=== PATIENT | male | born 1960 | race Caucasian/White ===

== ENCOUNTER 2018-07-02 12:55 | Inpatient (IN) | payer MEDICARE, OTHER ==
[2018-07-02 13:11] LABS: #Basophils 0.1 thou/uL (0.0-0.2); #Eosinphils 0.2 thou/uL (0.0-0.7); #Lymphocytes 3.5 thou/uL (1.20-3.40); #Neutrophils 6.3 thou/uL (1.40-6.50); %Basophils 0.6 % (0.0-1.0); %Lymphocytes 31.6 % (21.0-51.0); %Monocytes 8.7 % (0.0-10.0); %Neutrophils 57.1 % (42.0-75.0); Mean Corpuscular HGB CONC 34.4 g/dL (32.0-36.0); Mean Corpuscular Hemoglobin 30.4 pg (27.0-31.0); Mean Corpuscular Volume 88.6 fL (78.0-98.0); Mean Platelet Volume 7.6 fL (7.4-10.4); Platelet Count 194 thou/uL (130-400); RBC Distribution Width 12.5 % (11.5-14.5)
[2018-07-02 13:23] LABS: PTT 25.1 SEC (22.9-36.1); Prothrombin Time 13.7 SEC (12.0-14.7)
[2018-07-02 13:26] LABS: ALT (SGPT) 31 U/L (8-55); AST (SGOT) 23 U/L (5-34); Albumin 4.2 g/dL (3.5-5.0); Alkaline Phosphatase 76 U/L (40-150); Anion Gap 14 mmol/L (10-20); BUN (Urea Nitrogen) 17 mg/dL (8.4-25.7); Bilirubin, Total 0.8 mg/dL (0.2-1.2); CK (CPK) 173 U/L (30-200); Calc. Creatinine Clearance 0 mL/min (70-130); Calcium 9.7 mg/dL (7.8-10.44); Carbon Dioxide 24 mmol/L (22-29); Chloride 103 mmol/L (98-107); Estimated GFR-MDRD Greater than 90; Globulin 3.8 g/dL (2.4-3.5); Glucose 95 mg/dL (70-105); Potassium 4.4 mmol/L (3.5-5.1); Sodium 137 mmol/L (136-145)
--- NOTE | 2018-07-02 13:35 | CT ---
BRAIN CT WITHOUT IV CONTRAST: HISTORY: A 58-year-old male with a history of left facial droop, slurred speech approximately 1-1/2 hours ago, Code stroke alert. FINDINGS: No focal mass or midline shift. No intra- or extraaxial hemorrhage. Minimal motion artifact, partic ularly though the lower scan slice levels. IMPRESSION: No mass or bleed or other significant acute process. Findings were discussed with Dr. Theodore in the emergency room at 1:03 p.m. CODE CR POS: [facility]
--- NOTE | 2018-07-02 13:53 | CT ---
CT ANGIOGRAM OF THE HEAD AND NECK: HISTORY: Stroke alert. Left facial droop and slurred speech. Onset x 1.5 hours. COMPARISON: None. FINDINGS: No pathologic enhancement of the brain parenchymal Cortical cody-white matter differentiation is pre served. Limited evaluation for subarachnoid hemorrhage due to the presence of contrast in the arteri al system. Symmetric attenuation of the optic nerves and ocular rectus muscles. Both globes are intact. Retrob ulbar fat is preserved. Adequate aeration of the sinuses and mastoid air cells. Limited evaluation of the oral cavity due to dental amalgam artifact. Midline fatty raphae of the to ngue is preserved. Epiglottis has a normal caliber. Preepiglottic fat is preserved. Symmetric attenuation of the submandibular gland and parathyroid gland. Symmetric attenuation of the sternocleidomastoid muscles. Unremarkable thyroid gland. No evidence of lymphadenopathy by size criteria. There is an anterior fusion place with transvertebr al screw at C4-C5. Disk prosthesis at that level is noted. There is moderate degenerative disk dise ase at C5-C6. There are varying degrees of central canal stenosis and neural foraminal narrowing on the basis of degenerative change. Limited evaluation due to technique. There does appear to be sign ificant bilateral foraminal narrowing and significant central canal stenosis at the C5-C6 level. CT ANGIOGRAM: There is appropriate enhancement and luminal diameter of the aortic arch. RIGHT CAROTID: There is appropriate enhancement and luminal diameter of the common carotid artery, carotid bifurcati on, and internal carotid artery. No evidence of stenosis by NASCET criteria. LEFT CAROTID: The left carotid artery origin has appropriate enhancement and luminal diameter. The left common car otid artery, carotid bifurcation, and internal carotid artery have appropriate enhancement and lumina l diameter. No significant stenosis based on NASCET criteria. Cervical vertebral arteries are patent throughout their course in the neck and essentially codominant . Symmetric appearance of both visualized subclavian arteries. CT ANGIOGRAM OF THE HEAD: There is symmetric enhancement and luminal diameter of the distal cervical and intracranial internal carotid arteries. ANTERIOR CIRCULATION: Symmetric enhancement and luminal diameter of the A1 and M1 segments. Proximal A2 segments and proxi mal MCA branches are also patent and symmetric. POSTERIOR CIRCULATION: Right PICA artery origin is unremarkable. The left PICA artery origin is difficult to appreciate. B oth vertebral arteries supply a normal-caliber basilar artery. The left P1 segment has appropriate e nhancement and luminal diameter. The right PARK SUPERINTENDENT has a origin. IMPRESSION: 1. No significant stenosis or vascular occlusion at the level of the [place]. 2. No significant atherosclerotic disease of the great vessels of the neck, based upon NASCET criter ia. 3. Results of the study were discussed with Dr. Theodore 07/02/2018 at 1:28 p.m. CODE CR POS: [facility]
--- NOTE | 2018-07-02 14:02 | RAD ---
CHEST 1 VIEW: HISTORY: A 58-year-old male with a history of left-sided facial droop which began this morning, dysphasia, and slurred speech, expressive aphasia. FINDINGS: Heart size is normal. The lungs are clear. NO pneumonia, edema, or pleural effusion. IMPRESSION: No acute intrathoracic disease. Stable from prior study. POS: [facility]
[2018-07-02 16:12] VITALS: BMI 40.6
[2018-07-02] MEDS ORDERED: Ondansetron ODT 4 MG TAB SL PRN (16:19)
[2018-07-02] MEDS ORDERED: Iopamidol 370 76% 100 ML VIAL ONE (17:03)
[2018-07-02] MEDS: Acetaminophen 325 MG TAB PO PRN ×2 (19:36→23:34)
[2018-07-02] MEDS: Ondansetron PF 4 MG/2 ML Vial IVP PRN (19:36)
--- NOTE | 2018-07-02 23:06 | CON ---
DATE OF CONSULTATION: 07/02/2018 CHIEF COMPLAINT: Possible acute stroke. HISTORY OF PRESENT ILLNESS: ER physician called me this afternoon with a request for a stroke evaluation and possible IV tPA. We immediately saw this patient through telemedicine consultation. History was obtained from the patient and his . The patient woke up this morning at around 9:30 a.m., he went to the restroom to brush his teeth. His face felt numb and he was swishing his mouth out and gargling and he could not do it. He felt he has swallowing difficulties and was not able to swallow anything and he has not eaten anything on the morning. He felt that his mouth and everything around and the numbness in the face has travelled. He also had some pain behind his ear, but he reports numbness in the right arm and right leg as well. was driving him to the ER and she noticed his speech became slurred and both sides of his face became weak. The question was whether this patient did indeed have a stroke due to this unusual medical history, therefore, Neuro consult was obtained stat and evaluation was performed. The patient has no history of weakness. PREVIOUS MEDICAL HISTORY: Hypertension. PAST SURGICAL HISTORY: In 2016, he had cervical diskectomy and fusion. FAMILY HISTORY: Father had a CVA, at 59. Mother at 70, she also had CVA at 65. SOCIAL HISTORY: He used to work as a chemical lab supervisor and is a nonsmoker and does not drink alcohol, and he has been on disability due to back problems. MEDICATIONS: At home include; 1. Amlodipine and benazepril combination at 5/20 mg once daily. 2. Sertraline 100 mg per day. 3. Diazepam 5 mg as needed. 4. Hydrochlorothiazide 25 mg per day. 5. Aspirin 81 mg as needed. REVIEW OF SYSTEMS: PULMONARY: Negative for any shortness of breath. CARDIAC: Negative for palpitations or chest pain. GI: Negative for any nausea, vomiting, nausea, or GI bleed. HEMATOLOGICAL: Negative for any bleeding or diatheses. DERMATOLOGICAL: Negative. NEUROLOGICAL: Positive for numbness of the face, facial weakness, right-sided numbness, and difficulty with swallowing. LABORATORY DATA: Laboratory workup was reviewed and his lab reports showed normal white count 11.0, hemoglobin 17, hematocrit 49.6, and platelets 194. PT 13.7, INR 1.0, PTT 25.1. Chemistry; sodium 137, potassium 4.4, chloride 103, bicarb 24, BUN 17, creatinine 0.83. Liver functions are within normal limits. His CT of the head was negative for any acute intracranial process and CT angiogram did not show any critical stenosis in the larger intracranial or extracranial vessels. However, there is some disk prostheses and degenerative changes on the C-spine and CT in the posterior circulation, left PICA artery origin was difficult to appreciate and both vertebral arteries were normal. The left P1 segment has appropriate enhancement. Right GUEST SERVICE REPRESENTATIVE has origin. PHYSICAL EXAMINATION: VITAL SIGNS: Stable in the ER, and his blood pressure at the time of my evaluation was 150/104, pulse 69, and respiratory rate 20. GENERAL APPEARANCE: Slightly obese gentleman who is well built and well nourished. CHEST: Clear vesicular breathing. CARDIOVASCULAR: S1 and S2 heard. No murmurs. ABDOMEN: Soft and nontender. No organomegaly noted. NEUROLOGICAL: Higher intellectual functions. Oriented to time, place, person, and dysarthria was present due to facial weakness. Cranial nerve examination II through XII abnormal with the pupils reacting at 2 mm equally and normal extraocular movements. There was facial asymmetry with the right facial droop and right facial weakness. He was moving his tongue around, but he says this was due to him feeling everything is numb. Decreased sensation of the right side of the face. Normal hearing bilaterally. Normal elevation of palate, but deviation of the mouth to the right side. Motor examination, no pronator drift was noted. Bulk, normal. Tone, normal. Strength, 5/5 in upper and lower extremities. Muscle groups tested in iliopsoas, hamstrings, quadriceps, ankle dorsiflexion, plantar flexion, deltoid, biceps, triceps, wrist extension and flexion, finger extension and flexion bilaterally, and deep tendon reflexes were 1+ throughout. Sensory examination normal to touch and proprioception on the left side, but decreased touch in the right face, arm, and leg distribution. Cerebellar; normal [id number]-[id number]-tday and [id number]. IMPRESSION: The patient is a 58-year-old man with a history of hypertension and there is also family history of stroke, even though the CT angiogram is read as normal. There are some areas or segments that are not visible, especially the left Posterior inferior cerebellar artery. The patient's clinical symptoms are mostly consistent with facial weakness, facial numbness, right-sided numbness, and also difficulty swallowing, and examination showed right lower motor neuron facial weakness plus facial numbness on the right side, right leg and arm numbness along with tongue deviation to the right. All are suggestive of possible posterior circulation event could likely in the medullopontine junction. At this time, due to patient being within in the time frame for IV tPA and it is difficult to predict the future progression of his event over the next 24 hours. He is a candidate for IV tPA. With the help of ER physician and discussion of all side defects and pros and cons of IV tPA, the patient and his were agreeable to IV tPA treatment. Plan is to proceed with IV tPA and admit the patient in the hospital for monitoring and completion of his stroke workup. Neurology will follow up as-needed. Please call them tomorrow if you need additional help for this patient. Job ID: [id number]
[2018-07-03] MEDS: Ondansetron PF 4 MG/2 ML Vial IVP PRN (01:29)
[2018-07-03] MEDS ORDERED: Acetaminophen/Codeine 30-300mg Tablet PO SCH (01:30)
[2018-07-03] MEDS ORDERED: Labetalol HCl 100 MG/20 ML VIAL SLOW IVP PRN (05:56)
[2018-07-03] MEDS ORDERED: Ondansetron PF 4 MG/2 ML Vial IVP SCH (07:00)
[2018-07-03] MEDS ORDERED: Ondansetron PF 4 MG/2 ML Vial IVP PRN ×2 (08:11→11:34)
[2018-07-03] MEDS: Communication Order-Pharmacy FS SCH (08:35)
[2018-07-03] MEDS: Hydrochlorothiazide 25 MG TAB PO SCH (08:53)
[2018-07-03] MEDS: Diazepam 5 MG TAB PO PRN (08:53)
--- NOTE | 2018-07-03 09:30 | CON ---
DATE OF CONSULTATION: 07/03/2018 CONSULTING PHYSICIAN: Leighannist . REASON FOR CONSULTATION: Stroke. HISTORY OF PRESENT ILLNESS: The patient is a 58-year-old male, who developed right-sided facial numbness and a right-sided facial droop while brushing his teeth yesterday. He was brought to the ER. He had CT cerebral angiogram, which did not show any abnormalities, but the patient was given tPA. He has had resolution of the numbness, but continues to have the right-sided facial droop. He had no other neurologic symptoms. He currently denies any problems swallowing or with his speech. PAST MEDICAL HISTORY: 1. Hypertension. 2. [place]. 3. Depression. PAST SURGICAL HISTORY: Cervical diskectomy and fusion. FAMILY MEDICAL HISTORY: Remarkable for stroke in his father, who at age 58. Mother also had a stroke. SOCIAL HISTORY: He is retired from working at a [employer] plant. Does not smoke. Does not consume alcohol. He is on disability due to his back. MEDICATIONS: Prior to admission, 1. Amlodipine with benazepril 5/25 once daily. 2. Sertraline 100 mg daily. 3. Diazepam 5 mg daily as needed. 4. Hydrochlorothiazide 25 mg daily. 5. Aspirin 81 mg daily, but not every day. REVIEW OF SYSTEMS: Twelve-point review of systems otherwise except for that in the history of present illness. PHYSICAL EXAMINATION: VITAL SIGNS: Temperature 98.0, pulse 67, blood pressure 147/84, O2 sat 99%, and respiratory rate 21. GENERAL: He is awake and alert, and in no distress. NEUROLOGIC: Pupils are reactive. He has a right-sided facial droop. Tongue projects midline. He has 5/5 motor strength throughout his arms and legs. No sensory deficits in arms and legs. No other focal deficits found. HEENT: Otherwise unremarkable. NECK: No JVD. LUNGS: Clear without wheezing. CARDIAC: S1 and S2, regular. ABDOMEN: Soft and nontender. EXTREMITIES: No clubbing, cyanosis, or edema. SKIN: No lesions. LABORATORY DATA: White blood cell count of 11, hematocrit 49.6, and platelet count 194. Sodium 137, potassium 4.4, chloride 103, CO2 of 24, BUN 17, creatinine 0.8, and glucose 95. IMAGING DATA: A chest x-ray demonstrated some scoliosis changes. Otherwise, lung murry were clear. ASSESSMENT: 1. Stroke with right-sided facial muscle weakness. 2. Risk factor for stroke appears to be hypertension. RECOMMENDATIONS: At the end of his 24-hour tPA window, he can be transferred out to the Stroke Floor. He is not requiring anything in the way of IV blood pressure management, so I do not think this is going to be a complicated situation. There are no acute pulmonary/critical care issues and we will be available as needed for recommendations. Job ID: [id number]
[2018-07-03] MEDS: Amlodipine 5 mg/Benazepril 20 mg CAP PO SCH (10:19)
--- NOTE | 2018-07-03 10:39 | CT ---
CT BRAIN WITHOUT CONTRAST: Date: 07/03/18 HISTORY: Cerebrovascular accident. Stroke. COMPARISON: Brain CT prior day. FINDINGS: Old right basal ganglia lacunar infarction. No acute large volume hemorrhage or infarction. No midlin e shift or mass effect. Insular ribbons are intact. IMPRESSION: No acute intracranial abnormality. No change. POS: [facility]
[2018-07-03] MEDS ORDERED: predniSONE 20 MG TAB PO SCH (10:45)
--- NOTE | 2018-07-03 10:52 | PDOC.PN ---
- Subjective Encounter Start Date: 07/03/18 Encounter Start Time: 09:10 -: old records requested/rev Patient seen and examined. No new complaints. No overnight events - Objective MAR Reviewed: Yes Vital Signs & Weight: Vital Signs (12 hours) Temp Pulse Ox 07/03/18 09:00 98 F 07/03/18 07:56 100 07/03/18 07:00 98 F 07/03/18 04:00 98.1 F 07/03/18 00:00 97.8 F Weight Weight 289 lb 14.526 oz Most Recent Monitor Data Heart Rate from ECG 66 NIBP 136/81 NIBP BP-Mean 99 Respiration from ECG 18 SpO2 89 I&O: 07/02/18 07/03/18 07/04/18 06:59 06:59 06:59 Intake Total 780 300 Output Total 1200 420 Balance -420 -120 Result Diagrams: 07/02/18 13:00 07/02/18 13:00 Additional Labs: Accuchecks 07/02/18 13:01 POC Glucose 88 Radiology Reviewed by me: Yes (CT brain noted) EKG Reviewed by me: Yes (nsr) Phys Exam - Physical Examination Constitutional: NAD HEENT: PERRLA, moist MMs, sclera anicteric Neck: no JVD, supple Respiratory: no wheezing, no rales, no rhonchi Cardiovascular: RRR, no significant murmur, no rub Gastrointestinal: soft, non-tender, no distention, positive bowel sounds Musculoskeletal: no edema, pulses present Neurological: non-focal, normal sensation, moves all 4 limbs 7th LMN palsy Lymphatic: no nodes Psychiatric: normal affect, A&O x 3 Skin: no rash, normal turgor Dx/Plan (1) Acute CVA (cerebrovascular accident) Code(s): I63.9 - CEREBRAL INFARCTION, UNSPECIFIED Status: Suspected (2) Received intravenous tissue plasminogen activator (tPA) in emergency department Code(s): Z92.82 - S/P ADMN TPA IN DIFF FAC W/N LAST 24 HR BEF ADM TO CRNT FAC Status: Acute (3) Anxiety and depression Code(s): F41.9 - ANXIETY DISORDER, UNSPECIFIED; F32.9 - MAJOR DEPRESSIVE DISORDER, SINGLE EPISODE, UNSPECIFIED Status: Chronic (4) Dyslipidemia Code(s): E78.5 - HYPERLIPIDEMIA, UNSPECIFIED Status: Chronic (5) Hypertension Code(s): I10 - ESSENTIAL (PRIMARY) HYPERTENSION Status: Chronic (6) Swann's palsy Code(s): G51.0 - SWANN'S PALSY Status: Acute - Plan cont current plan of care, plan discussed w/ family, PT/OT * medication reviewed as below * symptomatic treatment * discussed with family and all test result discussed * will transfer to stroke floor later on today * will get MRI, echo as a part of stroke work up. Review of Systems - Review of Systems Eyes: negative: Pain, Vision Change, Conjunctivae Inflammation, Eyelid Inflammation, Redness, Other ENT: negative: Ear Pain, Ear Discharge, Nose Pain, Nose Discharge, Nose Congestion, Mouth Pain, Mouth Swelling, Throat Pain, Throat Swelling, Other Respiratory: negative: Cough, Dry, Shortness of Breath, Hemoptysis, SOB with Excertion, Pleuritic Pain, Sputum, Wheezing Cardiovascular: negative: chest pain, palpitations, orthopnea, paroxysmal nocturnal dyspnea, edema, light headedness, other Gastrointestinal: negative: Nausea, Vomiting, Abdominal Pain, Diarrhea, Constipation, Melena, Hematochezia, Other Genitourinary: negative: Dysuria, Frequency, Incontinence, Hematuria, Retention , Other Musculoskeletal: negative: Neck Pain, Shoulder Pain, Arm Pain, Back Pain, Hand Pain, Leg Pain, Foot Pain, Other - Medications/Allergies Allergies/Adverse Reactions: Allergies Allergy/AdvReac Type Severity Reaction Status Date / Time No Known Allergies Allergy Unverified 02/15/16 15:14 Medications: Current Medications Amlodipine/Benazepril HCl (Lotrel 11/15) 1 cap PO QAM [facility] Last Admin: 07/03/18 10:19 Dose: 1 cap Artificial Tears (Tears Renewed 15ml Bottle) 2 drop R EYE QID PRN PRN Reason: Dry Eyes Aspirin (Ecotrin) 325 mg PO DAILY [facility] Atorvastatin Calcium (Lipitor) 40 mg PO HS [facility] Diazepam (Valium) 5 mg PO BID PRN PRN Reason: Anxiety/Agitation Last Admin: 07/03/18 08:53 Dose: 5 mg Hydrochlorothiazide (Hydrochlorothiazide) 25 mg PO DAILY [facility] Last Admin: 07/03/18 08:53 Dose: 25 mg Nicardipine HCl 25 mg/ Sodium (Chloride) 260 mls @ 0 mls/hr IVPB INF PRN; Protocol PRN Reason: SBP > 180 or DBP > 105 Labetalol HCl (Normodyne) 10 mg SLOW IVP Q2H PRN PRN Reason: SBP > 180 or DBP > 105 Miscellaneous Information (Communication Order-Pharmacy) 1 each FS NOW [facility] Stop: 07/04/18 05:57 Last Admin: 07/03/18 08:35 Dose: Not Given Ondansetron HCl (Zofran) 4 mg IVP Q6H PRN PRN Reason: Nausea/Vomiting Prednisone (Prednisone) 40 mg PO 1045 [facility] Stop: 07/03/18 12:00 Last Admin: 07/03/18 10:53 Dose: 40 mg Prednisone (Prednisone) 20 mg PO 0900 [facility] Stop: 07/04/18 12:00 Prednisone (Prednisone) 15 mg PO 0900 [facility] Stop: 07/04/18 12:00 Prednisone (Prednisone) 30 mg PO 0900 [facility] Stop: 07/05/18 12:00 Prednisone (Prednisone) 25 mg PO 0900 [facility] Stop: 07/06/18 12:00 Sertraline HCl (Zoloft) 100 mg PO QAM [facility] Last Admin: 07/03/18 08:53 Dose: 100 mg Sodium Chloride (Flush - Normal Saline) 10 ml IVF Q12HR [facility] Last Admin: 07/03/18 08:53 Dose: 10 ml Sodium Chloride (Flush - Normal Saline) 10 ml IVF PRN PRN PRN Reason: Saline Flush
[2018-07-03] MEDS ORDERED: Cepastat Lozenges 1 LOZ PO PRN (11:34)
[2018-07-03] MEDS ORDERED: Loratadine 10 MG TAB PO PRN (11:34)
[2018-07-03] MEDS ORDERED: Loperamide HCl 2 MG CAP PO PRN (11:34)
[2018-07-03] MEDS ORDERED: Diabetic Tussin 200 MG/10 ML UDCUP PO PRN (11:34)
[2018-07-03] MEDS ORDERED: Zolpidem Tartrate 5 MG TAB PO PRN (11:34)
[2018-07-03] MEDS ORDERED: hydrALAZINE 20 MG/ML VIAL SLOW IVP PRN (11:34)
[2018-07-03] MEDS ORDERED: Sodium Chloride 0.65% Nasal 44 ML BOT EA NARE PRN (11:34)
[2018-07-03] MEDS ORDERED: Bisacodyl 5 MG TAB PO PRN (11:34)
[2018-07-03] MEDS ORDERED: Eucerin (Mineral Oil/Petrolatum,White) 30 gm Jar TOP PRN (11:34)
[2018-07-03] MEDS ORDERED: Senokot S 8.6-50 MG TAB PO PRN (11:34)
[2018-07-03] MEDS ORDERED: Artificial Tears 18 DROP/0.9 ML EA EYE PRN (11:34)
[2018-07-03] MEDS: Acetaminophen/Codeine 30-300mg Tablet PO PRN ×2 (12:51→20:52)
--- NOTE | 2018-07-03 14:19 | MRI ---
MRI BRAIN WITHOUT CONTRAST: Date: 07/03/18 HISTORY: Evaluate CVA. Right facial weakness. COMPARISON: CT brain same date. FINDINGS: On the diffusion-weighted image sequence, there are no abnormal areas of diffusion restriction to sug gest an acute infarction. This is confirmed on the ADC map. Mild microvascular ischemic change. No midline shift. No mass effect. The [place] flow-voids are maintained. On the susceptibility imaging sequence, there are no abnormal areas of hemorrhage. Corpus callosum is normal. Marrow signal of the clivus is normal. IMPRESSION: No acute intracranial abnormality. No hemorrhage or infarct. POS: [facility]
--- NOTE | 2018-07-03 16:11 | PRG ---
DATE OF SERVICE: 07/03/2018 SUBJECTIVE: The patient states that he still feels that the right side of his face is weak. He notices that he does not close his right eye as well as he close of the left eye. He does not noticing any numbness or weakness of his arms or legs. He feels that he is better than yesterday. He had tPA given in the ER for stroke-like symptoms. OBJECTIVE: VITAL SIGNS: Blood pressure 133/82, pulse 73 regular, respiratory rate 18, O2 saturation 91%. HEENT: Negative. Throat is clear. Tongue does not deviate. Cranial nerves 2 through 12 tested normally except for right peripheral 7th palsy. He does not wrinkle the right side of the forehead as well as the left. He does not bury the eyelashes on the right side and there is weakness of the right side of the mouth. Motor 5/5 strength in the arms and legs. DTRs 1+. Toes downgoing. Sensation is normal. Coordination is normal. LABORATORY DATA: Test results showed a white count of 11.0, platelets 194,000, hemoglobin 17, hematocrit 49.6. Other tests showed that in the ER, he had a CT of the head which was negative. He had a followup CT of the head today, which was also negative. This was done because he had tPA yesterday. There was a CTA of the head and neck, it was essentially negative. However, the left posterior inferior cerebellar artery was difficult to appreciate. IMPRESSION: His examination is consistent mostly with a peripheral 7th palsy on the right, consistent with a Vincent's palsy. PLAN: We will go ahead and get the MRI of the brain to absolutely rule out a cerebral infarction. Discussed with the patient. Also we will give tapering dose of prednisone 40 mg, alternating with 40 mg a day, and then tapering by 5 mg every other day. Also, we will give Artificial Tears in the right eye, use right eye protection. Discussed in detail with the patient and his and answered questions. Discussed with patient's nurse. Job ID: [id number]
[2018-07-03] MEDS: Atorvastatin Calcium 40 MG TAB PO SCH (20:52)
[2018-07-04] MEDS: Ondansetron ODT 4 MG TAB PO PRN ×2 (00:09→10:32)
[2018-07-04] MEDS: Diazepam 5 MG TAB PO PRN ×2 (00:09→20:44)
[2018-07-04] MEDS: Communication Order-Pharmacy FS SCH (02:16)
[2018-07-04 06:51] LABS: #Eosinphils 0.2 thou/uL (0.0-0.7); #Lymphocytes 3.6 thou/uL (1.20-3.40); #Neutrophils 6.7 thou/uL (1.40-6.50); %Basophils 0.4 % (0.0-1.0); %Eosinophils 1.9 % (0.0-10.0); %Lymphocytes 30.9 % (21.0-51.0); %Monocytes 8.9 % (0.0-10.0); %Neutrophils 57.9 % (42.0-75.0); Hemoglobin 15.5 g/dL (14.0-18.0); Mean Corpuscular HGB CONC 33.8 g/dL (32.0-36.0); Mean Corpuscular Hemoglobin 30.3 pg (27.0-31.0); Mean Corpuscular Volume 89.8 fL (78.0-98.0); Mean Platelet Volume 7.4 fL (7.4-10.4); Platelet Count 212 thou/uL (130-400); RBC Distribution Width 12.5 % (11.5-14.5); Red Blood Cell (RBC) Count 5.11 mill/uL (4.70-6.10); White Blood Cell (WBC) Count 11.6 thou/uL (4.8-10.8)
[2018-07-04 07:12] LABS: Anion Gap 12 mmol/L (10-20); BUN (Urea Nitrogen) 14 mg/dL (8.4-25.7); Calc. Creatinine Clearance 178 mL/min (70-130); Calcium 9.4 mg/dL (7.8-10.44); Carbon Dioxide 25 mmol/L (22-29); Cardiac Risk 3.7 (Less than 4.5); Chloride 101 mmol/L (98-107); Cholesterol 178 mg/dl (< 200 Desired); Estimated GFR-MDRD Greater than 90; Glucose 90 mg/dL (70-105); HDL Cholesterol 48 mg/dL (>60 Neg Risk); LDL Cholesterol, Calculated 103 mg/dL; Potassium 3.4 mmol/L (3.5-5.1); Sodium 135 mmol/L (136-145); Triglycerides 134 mg/dL (Less than 150)
[2018-07-04] MEDS: Aspirin 325 mg Enteric Coated Tablet PO SCH (08:32)
[2018-07-04] MEDS: Amlodipine 5 mg/Benazepril 20 mg CAP PO SCH (08:33)
[2018-07-04] MEDS: Hydrochlorothiazide 25 MG TAB PO SCH (08:33)
[2018-07-04] MEDS: Artificial Tear Sol 15 ML BOT R EYE PRN ×2 (08:35→20:46)
[2018-07-04] MEDS ORDERED: predniSONE 20 MG TAB PO SCH (09:00)
[2018-07-04] MEDS ORDERED: predniSONE 5 MG TAB PO SCH (09:00)
--- NOTE | 2018-07-04 10:57 | PDOC.PN ---
- Subjective Encounter Start Date: 07/04/18 Encounter Start Time: 07:20 Patient seen and examined. No new complaints. No overnight events pt feels dizziness, headache is improving - Objective Resuscitation Status - Order Detail: 07/03/18 11:35 Resuscitation Status Routine Resuscitation Status: FULL: Full Resuscitation MAR Reviewed: Yes Vital Signs & Weight: Vital Signs (12 hours) Temp Pulse Pulse Pulse Resp BP BP 07/04/18 09:50 73 75 128/62 146/85 H 07/04/18 08:22 98.5 F 73 20 07/04/18 08:21 07/04/18 03:34 97.7 F 61 16 07/04/18 00:00 98.2 F 59 L 16 07/03/18 23:00 98 F 67 18 BP BP Pulse Ox 07/04/18 09:50 07/04/18 08:22 143/74 H 92 L 07/04/18 08:21 92 L 07/04/18 03:34 139/71 92 L 07/04/18 00:00 133/72 95 07/03/18 23:00 128/72 94 L Weight Weight 275 lb Most Recent Monitor Data Heart Rate from ECG 73 NIBP 142/75 NIBP BP-Mean 97 Respiration from ECG 22 SpO2 91 I&O: 07/03/18 07/04/18 07/05/18 06:59 06:59 06:59 Intake Total 780 1660 Output Total 1200 2645 Balance -420 -985 Result Diagrams: 07/04/18 05:32 07/04/18 05:32 Radiology Reviewed by me: Yes (MRI normal, echo is normal) EKG Reviewed by me: Yes (nsr) Phys Exam - Physical Examination Constitutional: NAD HEENT: PERRLA, moist MMs, sclera anicteric Neck: no JVD, supple Respiratory: no wheezing, no rales, no rhonchi Cardiovascular: RRR, no significant murmur, no rub Gastrointestinal: soft, non-tender, no distention, positive bowel sounds Musculoskeletal: no edema, pulses present Neurological: non-focal, normal sensation, moves all 4 limbs 7th nerve LMN palsy Lymphatic: no nodes Psychiatric: normal affect, A&O x 3 Skin: no rash, normal turgor Dx/Plan (1) Acute CVA (cerebrovascular accident) Code(s): I63.9 - CEREBRAL INFARCTION, UNSPECIFIED Status: Suspected (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 Status: Acute (3) Received intravenous tissue plasminogen activator (tPA) in emergency department Code(s): Z92.82 - S/P ADMN TPA IN DIFF FAC W/N LAST 24 HR BEF ADM TO CRNT FAC Status: Acute (4) Anxiety and depression Code(s): F41.9 - ANXIETY DISORDER, UNSPECIFIED; F32.9 - MAJOR DEPRESSIVE DISORDER, SINGLE EPISODE, UNSPECIFIED Status: Chronic (5) Dyslipidemia Code(s): E78.5 - HYPERLIPIDEMIA, UNSPECIFIED Status: Chronic (6) Hypertension Code(s): I10 - ESSENTIAL (PRIMARY) HYPERTENSION Status: Chronic (7) Hypokalemia Code(s): E87.6 - HYPOKALEMIA Status: Acute (8) [place] on CPAP Code(s): G47.33 - OBSTRUCTIVE SLEEP APNEA (ADULT) (PEDIATRIC); Z99.89 - DEPENDENCE ON OTHER ENABLING MACHINES AND DEVICES Status: Chronic (9) Obesity (BMI 30-39.9) Code(s): E66.9 - OBESITY, UNSPECIFIED Status: Chronic - Plan cont current plan of care, PT/OT * replace potassium * continue PT/OT * continue prednisone * expecting discharge tomorrow * medication reviewed as below * symptomatic treatment. Review of Systems - Review of Systems ENT: negative: Ear Pain, Ear Discharge, Nose Pain, Nose Discharge, Nose Congestion, Mouth Pain, Mouth Swelling, Throat Pain, Throat Swelling, Other Respiratory: negative: Cough, Dry, Shortness of Breath, Hemoptysis, SOB with Excertion, Pleuritic Pain, Sputum, Wheezing Cardiovascular: negative: chest pain, palpitations, orthopnea, paroxysmal nocturnal dyspnea, edema, light headedness, other Gastrointestinal: negative: Nausea, Vomiting, Abdominal Pain, Diarrhea, Constipation, Melena, Hematochezia, Other Genitourinary: negative: Dysuria, Frequency, Incontinence, Hematuria, Retention , Other Musculoskeletal: negative: Neck Pain, Shoulder Pain, Arm Pain, Back Pain, Hand Pain, Leg Pain, Foot Pain, Other Skin: negative: Rash, Lesions, Mark, Bruising, Other - Medications/Allergies Allergies/Adverse Reactions: Allergies Allergy/AdvReac Type Severity Reaction Status Date / Time No Known Allergies Allergy Unverified 02/15/16 15:14 Medications: Current Medications Acetaminophen (Tylenol) 500 mg PO Q6H PRN PRN Reason: Mild Pain (1-3) Acetaminophen/Codeine Phosphate (Tylenol #3) 1 tab PO Q4H PRN PRN Reason: Moderate Pain (4-6) Acetaminophen/Codeine Phosphate (Tylenol #3) 2 tab PO Q4H PRN PRN Reason: Moderate to Severe Pain (6-10) Last Admin: 07/03/18 20:52 Dose: 2 tab Amlodipine/Benazepril HCl (Lotrel /) [address] [facility] Last Admin: 07/04/18 08:33 Dose: 1 cap Artificial Tears (Tears Renewed 15ml Bottle) 2 drop R EYE QID PRN PRN Reason: Dry Eyes Last Admin: 07/04/18 08:35 Dose: 2 drop Artificial Tears (Tears Naturale) 2 drop EA EYE PRN PRN PRN Reason: Dry Eyes Aspirin (Ecotrin) [address] [facility] Last Admin: 07/04/18 08:32 Dose: 325 mg Atorvastatin Calcium (Lipitor) 40 mg PO [facility] Last Admin: 07/03/18 20:52 Dose: 40 mg Bisacodyl (Dulcolax) 10 mg PO DAILYPRN PRN PRN Reason: Constipation Diazepam (Valium) 5 mg PO BID PRN PRN Reason: Anxiety/Agitation Last Admin: 07/04/18 00:09 Dose: 5 mg Guaifenesin (Robitussin Sf) 200 mg PO Q4H PRN PRN Reason: Cough Hydralazine HCl (Apresoline) 10 mg SLOW IVP Q4H PRN PRN Reason: SBP > 180 and HR < 70 Hydrochlorothiazide (Hydrochlorothiazide) [address] [facility] Last Admin: 07/04/18 08:33 Dose: 25 mg Labetalol HCl (Normodyne) 10 mg SLOW IVP Q2H PRN PRN Reason: SBP > 180 or DBP > 105 Loperamide HCl (Imodium) 2 mg PO PRN PRN PRN Reason: Diarrhea/Loose Stools Loratadine (Claritin) 10 mg PO DAILYPRN PRN PRN Reason: Sinus Symptoms Mineral Oil/White Petrolatum (Eucerin Cream) 0 gm TOP BIDPRN PRN PRN Reason: Dry Skin Ondansetron HCl (Zofran Odt) 4 mg PO Q6H PRN PRN Reason: Nausea/Vomiting Last Admin: 07/04/18 10:32 Dose: 4 mg Ondansetron HCl (Zofran) 4 mg IVP Q6H PRN PRN Reason: Nausea/Vomiting Last Admin: 07/03/18 12:51 Dose: 4 mg Prednisone (Prednisone) [address] [facility] Stop: 07/04/18 12:00 Last Admin: 07/04/18 10:32 Dose: 20 mg Prednisone (Prednisone) [address] [facility] Stop: 07/04/18 12:00 Last Admin: 07/04/18 08:32 Dose: 15 mg Prednisone (Prednisone) [address] [facility] Stop: 07/05/18 12:00 Prednisone (Prednisone) [address] [facility] Stop: 07/06/18 12:00 Prednisone (Prednisone) [address] [facility] Stop: 07/07/18 12:00 Prednisone (Prednisone) [address] [facility] Stop: 07/08/18 12:00 Prednisone (Prednisone) [address] [facility] Stop: 07/09/18 12:00 Prednisone (Prednisone) [address] [facility] Stop: 07/10/18 12:00 Senna/Docusate Sodium (Senokot S) 2 tab PO BID PRN PRN Reason: Constipation Sertraline HCl (Zoloft) [address] [facility] Last Admin: 07/04/18 08:32 Dose: 100 mg Sodium Chloride (Flush - Normal Saline) [address] [facility] Last Admin: 07/04/18 08:33 Dose: 10 ml Sodium Chloride (Flush - Normal Saline) 10 ml IVF PRN PRN PRN Reason: Saline Flush Sodium Chloride ([place] Nasal [place] 0.65%) 0 ml EA NARE QIDPRN PRN PRN Reason: Nasal Congestion Throat Lozenges (Cepastat Lozenges) 1 anila PO Q2H PRN PRN Reason: Sore Throat Zolpidem Tartrate (Ambien) 5 mg PO HSPRN PRN PRN Reason: Insomnia
[2018-07-04] MEDS: Meclizine HCl 12.5 MG TAB PO PRN (13:37)
--- NOTE | 2018-07-04 18:43 | PRG ---
DATE OF SERVICE: 07/04/2018 NEUROLOGY FOLLOWUP NOTE. SUBJECTIVE: This is followup for right-sided facial weakness. The patient still complains of some numbness around his lips and he is dizzy when he gets up. He is also a little bit nauseated. He has not had a bowel movement in two days, but really has not eaten very much. OBJECTIVE: VITAL SIGNS: On exam, blood pressure 127/60, respiratory rate 16, pulse 72 and regular, and temperature 98.6. HEENT: Normal. Cranial nerves II through XII show a peripheral 7th palsy on the right. He has diminished wrinkling of the right side of the forehead. Diminished eye closure on the right. Diminished wrinkling of the right side of the nose and diminished grimace of the right side of the mouth. The left side of the face is normal as far as strength. Pupils are 2 mm and reactive. Discs are sharp. Extraocular movements are normal. His tongue protrudes in the midline. Motor, 5/5 strength on the arms and legs. DTRs 2+. Toes downgoing. Sensation is intact to light touch on both sides of the face and on the arms and legs bilaterally. LABORATORY DATA: Test results show that he had an MRI of the brain and this was normal. There was no acute stroke. There was some mild chronic microvascular change. The labs showed a white count of 11.6, hemoglobin 15, potassium was slightly low at 3.4, and BUN 14. IMPRESSION: Vincent's palsy. It appears about the same as yesterday. There were no other cranial nerve findings other than the right peripheral 7th palsy. His exam is totally consistent with Vincent's palsy. His MRI of the brain is normal. Note that some people may get vertigo when they have Vincent's palsy. He also does have a history of vertigo in the past. PLAN: Discussed in detail the results of the MRI of the brain and CT and the Vincent's palsy with the patient and his . He is on a tapering regimen of the prednisone and Artificial Tears for the right eye. He is advised to use eye protection. He is advised to move around carefully due to his vertigo. We will give him meclizine p.r.n. for the vertigo. I do not have any further neurological recommendations at this point. Advise second opinion if the patient and family desires. Job ID: [id number] [facility]
[2018-07-04] MEDS: Atorvastatin Calcium 40 MG TAB PO SCH (20:43)
[2018-07-05] MEDS: Ondansetron ODT 4 MG TAB PO PRN ×2 (08:20→13:20)
[2018-07-05] MEDS: Aspirin 325 mg Enteric Coated Tablet PO SCH (08:27)
[2018-07-05] MEDS: Amlodipine 5 mg/Benazepril 20 mg CAP PO SCH (08:28)
[2018-07-05] MEDS: Hydrochlorothiazide 25 MG TAB PO SCH (08:28)
[2018-07-05] MEDS: Artificial Tear Sol 15 ML BOT R EYE PRN (08:36)
[2018-07-05] MEDS ORDERED: predniSONE 20 MG TAB PO SCH (09:00)
[2018-07-05] MEDS: Acetaminophen/Codeine 30-300mg Tablet PO PRN (09:09)
[2018-07-05] MEDS: Meclizine HCl 12.5 MG TAB PO PRN (09:12)
[2018-07-05] MEDS: Diazepam 5 MG TAB PO PRN ×2 (10:38→21:25)
--- NOTE | 2018-07-05 13:05 | PDOC.PN ---
- Subjective Encounter Start Date: 07/05/18 Encounter Start Time: 07:30 he has vertigo, headache, nausea, prefers to evaluate for inpt rehab, Patient seen and examined. No new complaints. No overnight events - Objective Resuscitation Status - Order Detail: 07/03/18 11:35 Resuscitation Status Routine Resuscitation Status: FULL: Full Resuscitation MAR Reviewed: Yes Vital Signs & Weight: Vital Signs (12 hours) Temp Pulse Pulse Resp BP BP BP 07/05/18 12:00 97.6 F 65 12 119/66 07/05/18 10:05 81 137/72 07/05/18 08:21 07/05/18 07:58 97.4 F L 61 18 143/84 H 07/05/18 03:53 07/05/18 03:22 97.9 F 60 18 120/68 Pulse Ox 07/05/18 12:00 94 L 07/05/18 10:05 07/05/18 08:21 99 07/05/18 07:58 99 07/05/18 03:53 92 L 07/05/18 03:22 92 L Weight Weight 281 lb 3.2 oz Most Recent Monitor Data Heart Rate from ECG 73 NIBP 142/75 NIBP BP-Mean 97 Respiration from ECG 22 SpO2 91 I&O: 07/04/18 07/05/18 07/06/18 06:59 06:59 06:59 Intake Total 1660 840 Output Total 2645 Balance -985 840 Result Diagrams: 07/04/18 05:32 07/04/18 05:32 Additional Labs: Accuchecks 07/05/18 10:42 POC Glucose 182 H EKG Reviewed by me: Yes (nsr) Phys Exam - Physical Examination Constitutional: NAD HEENT: PERRLA, moist MMs, sclera anicteric Neck: no JVD, supple Respiratory: no wheezing, no rales, no rhonchi Cardiovascular: RRR, no significant murmur, no rub Gastrointestinal: soft, non-tender, no distention, positive bowel sounds Musculoskeletal: no edema, pulses present Neurological: non-focal, normal sensation, moves all 4 limbs swann's palsy noted Lymphatic: no nodes Psychiatric: normal affect, A&O x 3 Skin: no rash, normal turgor Dx/Plan (1) Acute CVA (cerebrovascular accident) Code(s): I63.9 - CEREBRAL INFARCTION, UNSPECIFIED Status: Suspected (2) Received intravenous tissue plasminogen activator (tPA) in emergency department Code(s): Z92.82 - S/P ADMN TPA IN DIFF FAC W/N LAST 24 HR BEF ADM TO CRNT FAC Status: Acute (3) Anxiety and depression Code(s): F41.9 - ANXIETY DISORDER, UNSPECIFIED; F32.9 - MAJOR DEPRESSIVE DISORDER, SINGLE EPISODE, UNSPECIFIED Status: Chronic (4) Dyslipidemia Code(s): E78.5 - HYPERLIPIDEMIA, UNSPECIFIED Status: Chronic (5) Hypertension Code(s): I10 - ESSENTIAL (PRIMARY) HYPERTENSION Status: Chronic (6) Swann's palsy Code(s): G51.0 - SWANN'S PALSY Status: Acute (7) Hypokalemia Code(s): E87.6 - HYPOKALEMIA Status: Acute (8) [place] on CPAP Code(s): G47.33 - OBSTRUCTIVE SLEEP APNEA (ADULT) (PEDIATRIC); Z99.89 - DEPENDENCE ON OTHER ENABLING MACHINES AND DEVICES Status: Chronic (9) Obesity (BMI 30-39.9) Code(s): E66.9 - OBESITY, UNSPECIFIED Status: Chronic - Plan cont current plan of care, plan discussed w/ family, PT/OT, adoption social worker * change prednisone 40 mg po daily * continue PT/OT and evaluate for inpt rehab * medication reviewed as below * symptomatic treatment * discussed with and family bedside * change antivert 25 mg po tid. Review of Systems - Review of Systems Constitutional: negative: fever, chills, sweats, weakness, malaise, other Eyes: negative: Pain, Vision Change, Conjunctivae Inflammation, Eyelid Inflammation, Redness, Other ENT: negative: Ear Pain, Ear Discharge, Nose Pain, Nose Discharge, Nose Congestion, Mouth Pain, Mouth Swelling, Throat Pain, Throat Swelling, Other Respiratory: negative: Cough, Dry, Shortness of Breath, Hemoptysis, SOB with Excertion, Pleuritic Pain, Sputum, Wheezing Cardiovascular: light headedness. negative: chest pain, palpitations, orthopnea , paroxysmal nocturnal dyspnea, edema, other Gastrointestinal: Nausea. negative: Vomiting, Abdominal Pain, Diarrhea, Constipation, Melena, Hematochezia, Other Genitourinary: negative: Dysuria, Frequency, Incontinence, Hematuria, Retention , Other Musculoskeletal: negative: Neck Pain, Shoulder Pain, Arm Pain, Back Pain, Hand Pain, Leg Pain, Foot Pain, Other Skin: negative: Rash, Lesions, Mark, Bruising, Other - Medications/Allergies Allergies/Adverse Reactions: Allergies Allergy/AdvReac Type Severity Reaction Status Date / Time No Known Allergies Allergy Unverified 02/15/16 15:14 Medications: Current Medications Acetaminophen (Tylenol) 500 mg PO Q6H PRN PRN Reason: Mild Pain (1-3) Acetaminophen/Codeine Phosphate (Tylenol #3) 1 tab PO Q4H PRN PRN Reason: Moderate Pain (4-6) Last Admin: 07/05/18 09:09 Dose: 1 tab Acetaminophen/Codeine Phosphate (Tylenol #3) 2 tab PO Q4H PRN PRN Reason: Moderate to Severe Pain (6-10) Last Admin: 07/03/18 20:52 Dose: 2 tab Amlodipine/Benazepril HCl (Lotrel 5/20) 1 cap PO QAM [facility] Last Admin: 07/05/18 08:28 Dose: 1 cap Artificial Tears (Tears Renewed 15ml Bottle) 2 drop R EYE QID PRN PRN Reason: Dry Eyes Last Admin: 07/05/18 08:36 Dose: 2 drop Artificial Tears (Tears Naturale) 2 drop EA EYE PRN PRN PRN Reason: Dry Eyes Aspirin (Ecotrin) 325 mg PO DAILY [facility] Last Admin: 07/05/18 08:27 Dose: 325 mg Atorvastatin Calcium (Lipitor) 40 mg PO HS [facility] Last Admin: 07/04/18 20:43 Dose: 40 mg Bisacodyl (Dulcolax) 10 mg PO DAILYPRN PRN PRN Reason: Constipation Diazepam (Valium) 5 mg PO BID PRN PRN Reason: Anxiety/Agitation Last Admin: 07/05/18 10:38 Dose: 5 mg Guaifenesin (Robitussin Sf) 200 mg PO Q4H PRN PRN Reason: Cough Hydralazine HCl (Apresoline) 10 mg SLOW IVP Q4H PRN PRN Reason: SBP > 180 and HR < 70 Hydrochlorothiazide (Hydrochlorothiazide) 25 mg PO DAILY [facility] Last Admin: 07/05/18 08:28 Dose: 25 mg Labetalol HCl (Normodyne) 10 mg SLOW IVP Q2H PRN PRN Reason: SBP > 180 or DBP > 105 Loperamide HCl (Imodium) 2 mg PO PRN PRN PRN Reason: Diarrhea/Loose Stools Loratadine (Claritin) 10 mg PO DAILYPRN PRN PRN Reason: Sinus Symptoms Meclizine HCl (Antivert) 25 mg PO Q8HR [facility] Mineral Oil/White Petrolatum (Eucerin Cream) 0 gm TOP BIDPRN PRN PRN Reason: Dry Skin Ondansetron HCl (Zofran Odt) 4 mg PO Q6H PRN PRN Reason: Nausea/Vomiting Last Admin: 07/05/18 08:20 Dose: 4 mg Ondansetron HCl (Zofran) 4 mg IVP Q6H PRN PRN Reason: Nausea/Vomiting Last Admin: 07/03/18 12:51 Dose: 4 mg Prednisone (Prednisone) 40 mg PO [facility] Senna/Docusate Sodium (Senokot S) 2 tab PO BID PRN PRN Reason: Constipation Sertraline HCl (Zoloft) 100 mg PO [facility] Last Admin: 07/05/18 08:28 Dose: 100 mg Sodium Chloride (Flush - Normal Saline) 10 ml IVF Q12HR [facility] Last Admin: 07/05/18 08:28 Dose: 10 ml Sodium Chloride (Flush - Normal Saline) 10 ml IVF PRN PRN PRN Reason: Saline Flush Sodium Chloride ([place] Nasal [place] 0.65%) 0 ml EA NARE QIDPRN PRN PRN Reason: Nasal Congestion Throat Lozenges (Cepastat Lozenges) 1 anila PO Q2H PRN PRN Reason: Sore Throat Zolpidem Tartrate (Ambien) 5 mg PO HSPRN PRN PRN Reason: Insomnia
[2018-07-05] MEDS: Meclizine HCl 25 MG TAB PO SCH ×2 (13:14→21:20)
[2018-07-05] MEDS: Atorvastatin Calcium 40 MG TAB PO SCH (21:20)
[2018-07-06] MEDS: Meclizine HCl 25 MG TAB PO SCH ×3 (06:23→20:16)
[2018-07-06] MEDS: Amlodipine 5 mg/Benazepril 20 mg CAP PO SCH (08:27)
[2018-07-06] MEDS: predniSONE 20 MG TAB PO SCH (08:27)
[2018-07-06] MEDS: Hydrochlorothiazide 25 MG TAB PO SCH (08:27)
[2018-07-06] MEDS: Aspirin 325 mg Enteric Coated Tablet PO SCH (08:27)
[2018-07-06] MEDS: Artificial Tear Sol 15 ML BOT R EYE PRN (08:28)
[2018-07-06] MEDS: Ondansetron ODT 4 MG TAB PO PRN ×2 (08:38→15:10)
[2018-07-06] MEDS: Diazepam 5 MG TAB PO PRN (08:39)
[2018-07-06] MEDS ORDERED: predniSONE 5 MG TAB PO SCH (09:00)
[2018-07-06] MEDS: Acetaminophen/Codeine 30-300mg Tablet PO PRN ×2 (10:38→15:10)
--- NOTE | 2018-07-06 13:30 | PDOC.PN ---
- Subjective Encounter Start Date: 07/06/18 Encounter Start Time: 07:45 Patient seen and examined. No new complaints. No overnight events - Objective Resuscitation Status - Order Detail: 07/03/18 11:35 Resuscitation Status Routine Resuscitation Status: FULL: Full Resuscitation MAR Reviewed: Yes Vital Signs & Weight: Vital Signs (12 hours) Temp Pulse Pulse Resp BP BP Pulse Ox 07/06/18 12:00 98.3 F 69 20 132/70 96 07/06/18 10:09 57 L 139/70 07/06/18 08:32 97 07/06/18 07:57 97.6 F 64 14 146/79 H 97 07/06/18 04:00 97.9 F 55 L 18 142/73 H 95 Weight Weight 281 lb 3.2 oz Most Recent Monitor Data Heart Rate from ECG 73 NIBP 142/75 NIBP BP-Mean 97 Respiration from ECG 22 SpO2 91 I&O: 07/05/18 07/06/18 07/07/18 06:59 06:59 06:59 Intake Total 840 120 Balance 840 120 Result Diagrams: 07/04/18 05:32 07/04/18 05:32 EKG Reviewed by me: Yes (nsr) Phys Exam - Physical Examination Constitutional: NAD HEENT: PERRLA, moist MMs, sclera anicteric Neck: no JVD, supple Respiratory: no wheezing, no rales, no rhonchi Cardiovascular: RRR, no significant murmur, no rub Gastrointestinal: soft, non-tender, no distention, positive bowel sounds Musculoskeletal: no edema, pulses present Neurological: non-focal, normal sensation bells palsy Lymphatic: no nodes Psychiatric: normal affect, A&O x 3 Skin: no rash, normal turgor Dx/Plan (1) Acute CVA (cerebrovascular accident) Code(s): I63.9 - CEREBRAL INFARCTION, UNSPECIFIED Status: Suspected (2) Received intravenous tissue plasminogen activator (tPA) in emergency department Code(s): Z92.82 - S/P ADMN TPA IN DIFF FAC W/N LAST 24 HR BEF ADM TO CRNT FAC Status: Acute (3) Anxiety and depression Code(s): F41.9 - ANXIETY DISORDER, UNSPECIFIED; F32.9 - MAJOR DEPRESSIVE DISORDER, SINGLE EPISODE, UNSPECIFIED Status: Chronic (4) Dyslipidemia Code(s): E78.5 - HYPERLIPIDEMIA, UNSPECIFIED Status: Chronic (5) Hypertension Code(s): I10 - ESSENTIAL (PRIMARY) HYPERTENSION Status: Chronic (6) Swann's palsy Code(s): G51.0 - SWANN'S PALSY Status: Acute (7) Hypokalemia Code(s): E87.6 - HYPOKALEMIA Status: Acute (8) [place] on CPAP Code(s): G47.33 - OBSTRUCTIVE SLEEP APNEA (ADULT) (PEDIATRIC); Z99.89 - DEPENDENCE ON OTHER ENABLING MACHINES AND DEVICES Status: Chronic (9) Obesity (BMI 30-39.9) Code(s): E66.9 - OBESITY, UNSPECIFIED Status: Chronic - Plan cont current plan of care, plan discussed w/ family, PT/OT, group social worker * pt still has vertigo, he will need placement * medication reviewed as below * symptomatic treatment * continue PT. Review of Systems - Review of Systems ENT: negative: Ear Pain, Ear Discharge, Nose Pain, Nose Discharge, Nose Congestion, Mouth Pain, Mouth Swelling, Throat Pain, Throat Swelling, Other Respiratory: negative: Cough, Dry, Shortness of Breath, Hemoptysis, SOB with Excertion, Pleuritic Pain, Sputum, Wheezing Cardiovascular: negative: chest pain, palpitations, orthopnea, paroxysmal nocturnal dyspnea, edema, light headedness, other Gastrointestinal: negative: Nausea, Vomiting, Abdominal Pain, Diarrhea, Constipation, Melena, Hematochezia, Other Genitourinary: negative: Dysuria, Frequency, Incontinence, Hematuria, Retention , Other Musculoskeletal: negative: Neck Pain, Shoulder Pain, Arm Pain, Back Pain, Hand Pain, Leg Pain, Foot Pain, Other Skin: negative: Rash, Lesions, Mark, Bruising, Other - Medications/Allergies Allergies/Adverse Reactions: Allergies Allergy/AdvReac Type Severity Reaction Status Date / Time No Known Allergies Allergy Unverified 02/15/16 15:14 Medications: Current Medications Acetaminophen (Tylenol) 500 mg PO Q6H PRN PRN Reason: Mild Pain (1-3) Acetaminophen/Codeine Phosphate (Tylenol #3) 1 tab PO Q4H PRN PRN Reason: Moderate Pain (4-6) Last Admin: 07/05/18 09:09 Dose: 1 tab Acetaminophen/Codeine Phosphate (Tylenol #3) 2 tab PO Q4H PRN PRN Reason: Moderate to Severe Pain (6-10) Last Admin: 07/06/18 10:38 Dose: 2 tab Amlodipine/Benazepril HCl (Lotrel 11/15) 1 cap PO QAM [facility] 234 BEDS AT [facility] Last Admin: 07/06/18 08:27 Dose: 1 cap Artificial Tears (Tears Renewed 15ml Bottle) 2 drop R EYE QID PRN PRN Reason: Dry Eyes Last Admin: 07/06/18 08:28 Dose: 2 drop Artificial Tears (Tears Naturale) 2 drop EA EYE PRN PRN PRN Reason: Dry Eyes Aspirin (Ecotrin) 325 mg PO DAILY [facility] 234 BEDS AT [facility] Last Admin: 07/06/18 08:27 Dose: 325 mg Atorvastatin Calcium (Lipitor) 40 mg PO HS [facility]S INCLUDE 234 BEDS AT [facility] Last Admin: 07/05/18 21:20 Dose: 40 mg Bisacodyl (Dulcolax) 10 mg PO DAILYPRN PRN PRN Reason: Constipation Diazepam (Valium) 5 mg PO BID PRN PRN Reason: Anxiety/Agitation Last Admin: 07/06/18 08:39 Dose: 5 mg Guaifenesin (Robitussin Sf) 200 mg PO Q4H PRN PRN Reason: Cough Hydralazine HCl (Apresoline) 10 mg SLOW IVP Q4H PRN PRN Reason: SBP > 180 and HR < 70 Hydrochlorothiazide (Hydrochlorothiazide) 25 mg PO DAILY [facility] 234 BEDS [facility] Last Admin: 07/06/18 08:27 Dose: 25 mg Labetalol HCl (Normodyne) 10 mg SLOW IVP Q2H PRN PRN Reason: SBP > 180 or DBP > 105 Loperamide HCl (Imodium) 2 mg PO PRN PRN PRN Reason: Diarrhea/Loose Stools Loratadine (Claritin) 10 mg PO DAILYPRN PRN PRN Reason: Sinus Symptoms Meclizine HCl (Antivert) 25 mg PO Q8HR [facility]S [facility]CLUDE 234 BEDS AT [facility] Last Admin: 07/06/18 06:23 Dose: 25 mg Mineral Oil/White Petrolatum (Eucerin Cream) 0 gm TOP BIDPRN PRN PRN Reason: Dry Skin Ondansetron HCl (Zofran Odt) 4 mg PO Q6H PRN PRN Reason: Nausea/Vomiting Last Admin: 07/06/18 08:38 Dose: 4 mg Ondansetron HCl (Zofran) 4 mg IVP Q6H PRN PRN Reason: Nausea/Vomiting Last Admin: 07/03/18 12:51 Dose: 4 mg Prednisone (Prednisone) 40 mg PO [facility] Last Admin: 07/06/18 08:27 Dose: 40 mg Senna/Docusate Sodium (Senokot S) 2 tab PO BID PRN PRN Reason: Constipation Last Admin: 07/06/18 12:45 Dose: 2 tab Sertraline HCl (Zoloft) 100 mg PO [facility] Last Admin: 07/06/18 08:27 Dose: 100 mg Sodium Chloride (Flush - Normal Saline) 10 ml IVF Q12HR COUNTS INCLUDE 234 BEDS AT [facility] Last Admin: 07/06/18 08:27 Dose: 10 ml Sodium Chloride (Flush - Normal Saline) 10 ml IVF PRN PRN PRN Reason: Saline Flush Sodium Chloride ([place] Nasal [place] 0.65%) 0 ml EA NARE QIDPRN PRN PRN Reason: Nasal Congestion Throat Lozenges (Cepastat Lozenges) 1 anila PO Q2H PRN PRN Reason: Sore Throat Zolpidem Tartrate (Ambien) 5 mg PO HSPRN PRN PRN Reason: Insomnia
[2018-07-06] MEDS: Acetaminophen 500 MG TAB PO PRN (20:15)
[2018-07-06] MEDS: Atorvastatin Calcium 40 MG TAB PO SCH (20:15)
[2018-07-07] MEDS: Ondansetron ODT 4 MG TAB PO PRN ×2 (01:48→15:04)
[2018-07-07] MEDS: Acetaminophen 500 MG TAB PO PRN (01:51)
[2018-07-07] MEDS: Acetaminophen/Codeine 30-300mg Tablet PO PRN ×3 (06:00→15:04)
[2018-07-07] MEDS: Meclizine HCl 25 MG TAB PO SCH ×2 (06:00→14:04)
[2018-07-07] MEDS ORDERED: predniSONE 20 MG TAB PO SCH (09:00)
--- NOTE | 2018-07-07 09:22 | CT ---
HEAD CT WITHOUT CONTRAST: Date: 07-07-18 Comparison: 07-03-18 History: Frontal headache and vertigo. Technique: Axial CT imaging obtained at 5 mm intervals from vertex through the skull base without con trast. FINDINGS: Imaged paranasal sinuses and mastoid air cells well aerated. No displaced calvarial fracture, intracr anial hemorrhage, midline shift, or mass effect. IMPRESSION: No acute findings. POS: YARELIS
[2018-07-07] MEDS: Aspirin 325 mg Enteric Coated Tablet PO SCH (09:42)
[2018-07-07] MEDS: Hydrochlorothiazide 25 MG TAB PO SCH (09:42)
[2018-07-07] MEDS: Amlodipine 5 mg/Benazepril 20 mg CAP PO SCH (09:42)
[2018-07-07] MEDS: predniSONE 20 MG TAB PO SCH (09:42)
[2018-07-07] MEDS: Diazepam 5 MG TAB PO PRN (09:46)
--- NOTE | 2018-07-07 10:36 | PDOC.PN ---
- Subjective Encounter Start Date: 07/07/18 Encounter Start Time: 07:30 Patient seen and examined. No new complaints. No overnight events - Objective Resuscitation Status - Order Detail: 07/03/18 11:35 Resuscitation Status Routine Resuscitation Status: FULL: Full Resuscitation MAR Reviewed: Yes Vital Signs & Weight: Vital Signs (12 hours) Temp Pulse Resp BP BP Pulse Ox 07/07/18 08:00 97.5 F L 56 L 16 139/83 95 07/07/18 04:00 97.6 F 57 L 16 131/77 93 L 07/07/18 00:00 97.4 F L 54 L 16 125/65 95 Weight Weight 280 lb 11.2 oz Most Recent Monitor Data Heart Rate from ECG 73 NIBP 142/75 NIBP BP-Mean 97 Respiration from ECG 22 SpO2 91 I&O: 07/06/18 07/07/18 07/08/18 06:59 06:59 06:59 Intake Total 120 500 Balance 120 500 Result Diagrams: 07/04/18 05:32 07/04/18 05:32 Radiology Reviewed by me: Yes (ct brain negative) EKG Reviewed by me: Yes (nsr) Phys Exam - Physical Examination Constitutional: NAD HEENT: PERRLA, moist MMs, sclera anicteric Neck: no JVD, supple Respiratory: no wheezing, no rales, no rhonchi Cardiovascular: RRR, no significant murmur, no rub Gastrointestinal: soft, non-tender, no distention, positive bowel sounds Musculoskeletal: no edema, pulses present Neurological: non-focal, normal sensation, moves all 4 limbs Lymphatic: no nodes Psychiatric: normal affect, A&O x 3 Skin: no rash, normal turgor Dx/Plan (1) Acute CVA (cerebrovascular accident) Code(s): I63.9 - CEREBRAL INFARCTION, UNSPECIFIED Status: Suspected (2) Received intravenous tissue plasminogen activator (tPA) in emergency department Code(s): Z92.82 - S/P ADMN TPA IN DIFF FAC W/N LAST 24 HR BEF ADM TO CRNT FAC Status: Acute (3) Anxiety and depression Code(s): F41.9 - ANXIETY DISORDER, UNSPECIFIED; F32.9 - MAJOR DEPRESSIVE DISORDER, SINGLE EPISODE, UNSPECIFIED Status: Chronic (4) Dyslipidemia Code(s): E78.5 - HYPERLIPIDEMIA, UNSPECIFIED Status: Chronic (5) Hypertension Code(s): I10 - ESSENTIAL (PRIMARY) HYPERTENSION Status: Chronic (6) Swann's palsy Code(s): G51.0 - SWANN'S PALSY Status: Acute (7) Hypokalemia Code(s): E87.6 - HYPOKALEMIA Status: Acute (8) [place] on CPAP Code(s): G47.33 - OBSTRUCTIVE SLEEP APNEA (ADULT) (PEDIATRIC); Z99.89 - DEPENDENCE ON OTHER ENABLING MACHINES AND DEVICES Status: Chronic (9) Obesity (BMI 30-39.9) Code(s): E66.9 - OBESITY, UNSPECIFIED Status: Chronic - Plan cont current plan of care, plan discussed w/ family, PT/OT, social studies teacher * continue prednisone for 5 more days then taper * medication reviewed as below * symptomatic treatment * outpt ENT follow up. Review of Systems - Review of Systems ENT: negative: Ear Pain, Ear Discharge, Nose Pain, Nose Discharge, Nose Congestion, Mouth Pain, Mouth Swelling, Throat Pain, Throat Swelling, Other Respiratory: negative: Cough, Dry, Shortness of Breath, Hemoptysis, SOB with Excertion, Pleuritic Pain, Sputum, Wheezing Cardiovascular: negative: chest pain, palpitations, orthopnea, paroxysmal nocturnal dyspnea, edema, light headedness, other Gastrointestinal: negative: Nausea, Vomiting, Abdominal Pain, Diarrhea, Constipation, Melena, Hematochezia, Other Genitourinary: negative: Dysuria, Frequency, Incontinence, Hematuria, Retention , Other Musculoskeletal: negative: Neck Pain, Shoulder Pain, Arm Pain, Back Pain, Hand Pain, Leg Pain, Foot Pain, Other Skin: negative: Rash, Lesions, Mark, Bruising, Other - Medications/Allergies Allergies/Adverse Reactions: Allergies Allergy/AdvReac Type Severity Reaction Status Date / Time No Known Allergies Allergy Unverified 02/15/16 15:14 Medications: Current Medications Acetaminophen (Tylenol) 500 mg PO Q6H PRN PRN Reason: Mild Pain (1-3) Last Admin: 07/07/18 01:51 Dose: 500 mg Acetaminophen/Codeine Phosphate (Tylenol #3) 1 tab PO Q4H PRN PRN Reason: Moderate Pain (4-6) Last Admin: 07/07/18 06:00 Dose: 1 tab Acetaminophen/Codeine Phosphate (Tylenol #3) 2 tab PO Q4H PRN PRN Reason: Moderate to Severe Pain (6-10) Last Admin: 07/07/18 09:46 Dose: 2 tab Amlodipine/Benazepril HCl (Lotrel 11/15) 1 cap PO QAM [facility] Last Admin: 07/07/18 09:42 Dose: 1 cap Artificial Tears (Tears Renewed 15ml Bottle) 2 drop R EYE QID PRN PRN Reason: Dry Eyes Last Admin: 07/06/18 08:28 Dose: 2 drop Artificial Tears (Tears Naturale) 2 drop EA EYE PRN PRN PRN Reason: Dry Eyes Aspirin (Ecotrin) 325 mg PO DAILY [facility] Last Admin: 07/07/18 09:42 Dose: 325 mg Atorvastatin Calcium (Lipitor) 40 mg PO HS [facility] Last Admin: 07/06/18 20:15 Dose: 40 mg Bisacodyl (Dulcolax) 10 mg PO DAILYPRN PRN PRN Reason: Constipation Diazepam (Valium) 5 mg PO BID PRN PRN Reason: Anxiety/Agitation Last Admin: 07/07/18 09:46 Dose: 5 mg Guaifenesin (Robitussin Sf) 200 mg PO Q4H PRN PRN Reason: Cough Hydralazine HCl (Apresoline) 10 mg SLOW IVP Q4H PRN PRN Reason: SBP > 180 and HR < 70 Hydrochlorothiazide (Hydrochlorothiazide) 25 mg PO DAILY [facility] Last Admin: 07/07/18 09:42 Dose: 25 mg Labetalol HCl (Normodyne) 10 mg SLOW IVP Q2H PRN PRN Reason: SBP > 180 or DBP > 105 Loperamide HCl (Imodium) 2 mg PO PRN PRN PRN Reason: Diarrhea/Loose Stools Loratadine (Claritin) 10 mg PO DAILYPRN PRN PRN Reason: Sinus Symptoms Meclizine HCl (Antivert) 25 mg PO Q8HR [facility] Last Admin: 07/07/18 06:00 Dose: 25 mg Mineral Oil/White Petrolatum (Eucerin Cream) 0 gm TOP BIDPRN PRN PRN Reason: Dry Skin Ondansetron HCl (Zofran Odt) 4 mg PO Q6H PRN PRN Reason: Nausea/Vomiting Last Admin: 07/07/18 01:48 Dose: 4 mg Ondansetron HCl (Zofran) 4 mg IVP Q6H PRN PRN Reason: Nausea/Vomiting Last Admin: 07/03/18 12:51 Dose: 4 mg Prednisone (Prednisone) 40 mg PO [facility] Last Admin: 07/07/18 09:42 Dose: 40 mg Senna/Docusate Sodium (Senokot S) 2 tab PO BID PRN PRN Reason: Constipation Last Admin: 07/06/18 12:45 Dose: 2 tab Sertraline HCl (Zoloft) 100 mg PO [facility] Last Admin: 07/07/18 09:42 Dose: 100 mg Sodium Chloride (Flush - Normal Saline) 10 ml IVF Q12HR [facility] Last Admin: 07/07/18 09:43 Dose: 10 ml Sodium Chloride (Flush - Normal Saline) 10 ml IVF PRN PRN PRN Reason: Saline Flush Sodium Chloride ([place] Nasal [place] 0.65%) 0 ml EA NARE QIDPRN PRN PRN Reason: Nasal Congestion Throat Lozenges (Cepastat Lozenges) 1 anila PO Q2H PRN PRN Reason: Sore Throat Zolpidem Tartrate (Ambien) 5 mg PO HSPRN PRN PRN Reason: Insomnia
[2018-07-07 11:05] LABS: #Basophils 0.1 thou/uL (0.0-0.2); #Eosinphils 0.2 thou/uL (0.0-0.7); #Lymphocytes 4.2 thou/uL (1.20-3.40); #Monocytes 0.8 thou/uL (0.11-0.59); #Neutrophils 6.7 thou/uL (1.40-6.50); %Basophils 0.6 % (0.0-1.0); %Eosinophils 1.7 % (0.0-10.0); %Lymphocytes 35.4 % (21.0-51.0); %Monocytes 6.4 % (0.0-10.0); %Neutrophils 55.9 % (42.0-75.0); Hemoglobin 16.3 g/dL (14.0-18.0); Mean Corpuscular HGB CONC 34.1 g/dL (32.0-36.0); Mean Corpuscular Hemoglobin 30.5 pg (27.0-31.0); Mean Corpuscular Volume 89.4 fL (78.0-98.0); Mean Platelet Volume 7.4 fL (7.4-10.4); Platelet Count 234 thou/uL (130-400); RBC Distribution Width 12.3 % (11.5-14.5); Red Blood Cell (RBC) Count 5.36 mill/uL (4.70-6.10); White Blood Cell (WBC) Count 11.9 thou/uL (4.8-10.8)
[2018-07-07 11:31] LABS: ALT (SGPT) 28 U/L (8-55); AST (SGOT) 15 U/L (5-34); Albumin 4.4 g/dL (3.5-5.0); Alkaline Phosphatase 80 U/L (40-150); Anion Gap 16 mmol/L (10-20); BUN (Urea Nitrogen) 14 mg/dL (8.4-25.7); Bilirubin, Total 0.7 mg/dL (0.2-1.2); Calc. Creatinine Clearance 148 mL/min (70-130); Calcium 9.6 mg/dL (7.8-10.44); Carbon Dioxide 27 mmol/L (22-29); Chloride 96 mmol/L (98-107); Estimated GFR-MDRD 79; Globulin 3.6 g/dL (2.4-3.5); Glucose 135 mg/dL (70-105); Potassium 3.5 mmol/L (3.5-5.1); Sodium 135 mmol/L (136-145)
[2018-07-07 11:47] VITALS: BP 122/62; TEMP 97.1
--- NOTE | 2018-07-07 12:06 | DIS ---
DATE OF ADMISSION: 07/02/2018 DATE OF DISCHARGE: 07/07/2018 PRIMARY CARE PHYSICIAN: Dr. Gross Head. DISCHARGE DISPOSITION: [facility]sp Unit. PRIMARY DISCHARGE DIAGNOSES: 1. Suspected cerebrovascular accident status post tPA. 2. Vincent palsy. 3. Hypokalemia. SECONDARY DISCHARGE DIAGNOSES: Obesity with BMI 39, obstructive sleep apnea on CPAP, hypertension, dyslipidemia, anxiety and depression. PRIMARY PROCEDURE/OPERATION: None. RADIOLOGICAL INVESTIGATION: Initial CT brain negative. CT [place] with CT angiography negative. Repeat CT brain negative. Third CT brain negative. MRI brain normal. Echocardiography showed diastolic dysfunction. SIGNIFICANT LABORATORY DATA: WBC 11.9, hemoglobin 16.3, platelet 234. INR 1.0. Sodium 135, potassium 3.5, BUN 14, creatinine 0.98. LFT normal. LDL 103. Cardiac enzyme negative. DISCHARGE MEDICATIONS: 1. Tylenol extra strength as directed. 2. Amlodipine with benazepril one tablet p.o. daily. 3. Diazepam 5 mg b.i.d. p.r.n. 4. Hydrochlorothiazide 25 mg daily. 5. Zoloft 100 mg daily. 6. Artificial Tears as directed. 7. Aspirin 81 mg daily. 8. Lipitor 40 mg p.o. at bedtime. 9. Protonix 40 mg p.o. daily. 10. Prednisone 40 mg p.o. daily for 5 days, then taper 10 mg every 2 days until finished. 11. Antivert 25 mg p.o. t.i.d. CONTRAINDICATION: None. CODE STATUS: Full code. INPATIENT LANDSCAPE HORTICULTURE INSTRUCTOR: Dr. Stephanie Roa and Dr. Felipa Valencia, neurologist was following while in hospital. TEST RESULT PENDING ON DISCHARGE: None. ALLERGIES: NO KNOWN DRUG ALLERGIES. DISCHARGE PLAN: Post hospital, the patient will follow up with primary care physician. The patient is instructed to follow up with ENT doctor after discharge. HOSPITAL COURSE: A 58-year-old male who was admitted by Dr. Param Zamora. There is no H and P dictated by him so far. The patient was also evaluated on admission by Dr. Felipa Valencia. The patient was given tPA in the emergency room for suspected CVA. His initial CT brain and CT [place] were negative. The patient was observed overnight in ICU after tPA. Next day when I saw this patient at that time, I found that the patient has Vincent palsy. Neurology, Dr. Stephanie Roa has agreed with that. We did MRI brain that was normal. Echocardiography was unremarkable. We did repeat CT brain here in the hospital after tPA within 24 hours and on the day of discharge, which were negative. The patient's presentation was consistent with vertigo and 7th nerve palsy. We treated him symptomatically with Antivert as well as prednisone. Rest of medication will be continued as per previous. The patient's family member requesting rehab placement and that is why with help of corrections caseworker, we arranged swing bed. The patient is seen and examined at bedside today. Plan of care discussed with the patient and family member. Paperwork for discharge done and discharge medication reconciliation done. Total time spent on discharge day, 32 minutes. Job ID: [id number]
[2018-07-08] MEDS ORDERED: predniSONE 5 MG TAB PO SCH (09:00)
[2018-07-09] MEDS ORDERED: predniSONE 5 MG TAB PO SCH (09:00)
[2018-07-10] MEDS ORDERED: predniSONE 5 MG TAB PO SCH (09:00)
== END 2018-07-07 15:35 | disposition swing bed (61) | DRG 63 ==
LOC: ERS 12:55 → CCU 15:12 → 2SE 07-03 23:12
PROVIDERS: ADMIT Emergency Medicine; ATTEND Emergency Medicine
DX: I63.9 Cerebral infarction, unspecified (principal); I10 Essential (primary) hypertension; Z98.1 Arthrodesis status; F41.8 Other specified anxiety disorders; E66.9 Obesity, unspecified; Z68.39 Body mass index [BMI] 39.0-39.9, adult; E87.6 Hypokalemia; G51.0 Bell's palsy; Z99.81 Dependence on supplemental oxygen; G47.33 Obstructive sleep apnea (adult) (pediatric); Z79.82 Long term (current) use of aspirin; Z79.899 Other long term (current) drug therapy; R29.704 NIHSS score 4; F41.9 Anxiety disorder, unspecified; F32.9 Major depressive disorder, single episode, unspecified
CPT/HCPCS: 36415; 36416; 70450; 70496; 70498; 70551; 71045; 80048; 80053; 80061; 82550; 84484; 85025; 85610; 85730; 86850; 86900; 86901; 93005; 93306; 96365; J2405; J2997; J7506; Q0162

== ENCOUNTER 2019-12-05 15:55 | Inpatient (IN) | payer MEDICARE ==
[2019-12-05 16:37] LABS: #Basophils 0.1 thou/uL (0.0-0.2); #Eosinphils 0.3 thou/uL (0.0-0.7); #Lymphocytes 2.6 thou/uL (1.20-3.40); #Monocytes 0.9 thou/uL (0.11-0.59); #Neutrophils 6.8 thou/uL (1.40-6.50); %Basophils 0.5 % (0.0-1.0); %Eosinophils 2.7 % (0.0-10.0); %Lymphocytes 24.6 % (21.0-51.0); %Monocytes 8.3 % (0.0-10.0); Hemoglobin 15.9 g/dL (14.0-18.0); Mean Corpuscular Hemoglobin 30.1 pg (27.0-31.0); Mean Corpuscular Volume 88.5 fL (78.0-98.0); Platelet Count 218 thou/uL (130-400); RBC Distribution Width 12.4 % (11.5-14.5); Red Blood Cell (RBC) Count 5.29 mill/uL (4.70-6.10); White Blood Cell (WBC) Count 10.7 thou/uL (4.8-10.8)
[2019-12-05 16:39] LABS: PTT 30.3 sec (22.9-36.1); Prothrombin Time 13.2 sec (12.0-14.7)
[2019-12-05 17:03] LABS: ALT (SGPT) 27 U/L (8-55); AST (SGOT) 17 U/L (5-34); Albumin 4.2 g/dL (3.5-5.0); Alkaline Phosphatase 105 U/L (40-110); Anion Gap 12 mmol/L (10-20); BUN (Urea Nitrogen) 15 mg/dL (8.4-25.7); Bilirubin, Total 0.5 mg/dL (0.2-1.2); Calc. Creatinine Clearance 0 mL/min (70-130); Calcium 9.5 mg/dL (7.8-10.44); Carbon Dioxide 27 mmol/L (22-29); Chloride 101 mmol/L (98-107); Estimated GFR-MDRD Greater than 90; Globulin 3.7 g/dL (2.4-3.5); Glucose 156 mg/dL (70-105); Potassium 3.8 mmol/L (3.5-5.1); Protein, Total 7.9 g/dL (6.0-8.3); Sodium 136 mmol/L (136-145)
[2019-12-05] MEDS ORDERED: Acetaminophen 500 MG TAB ONE (17:37)
[2019-12-05] MEDS ORDERED: Calcium Carbonate 500 MG ChewTAB PO PRN (18:10)
[2019-12-05] MEDS ORDERED: Ondansetron PF 4 MG/2 ML Vial IVP PRN (18:10)
[2019-12-05] MEDS ORDERED: Bisacodyl 10 MG SUPP PR PRN (18:10)
[2019-12-05] MEDS ORDERED: Guaifenesin DM 100-10/5 ML UDCUP PO PRN (18:10)
[2019-12-05] MEDS ORDERED: hydrALAZINE 20 MG/ML VIAL SLOW IVP PRN (18:10)
[2019-12-05] MEDS ORDERED: Acetaminophen 325 MG TAB PO PRN (18:10)
[2019-12-05] MEDS ORDERED: Morphine 2 MG/ML SYRINGE SLOW IVP PRN (18:10)
[2019-12-05] MEDS ORDERED: Senokot S 8.6-50 MG TAB PO PRN (18:10)
--- NOTE | 2019-12-05 18:29 | CT ---
CT BRAIN WITHOUT CONTRAST: 12/05/19 HISTORY: Dizziness, vertigo, headache. COMPARISON: 07/07/18. FINDINGS: No evidence of acute infarct, hemorrhage, midline shift or abnormal extra-axial fluid collections see n. The ventricular size is appropriate and the basilar cisterns patent. The bony calvarium is intact. The visualized paranasal sinuses and mastoid air cells are well aerated. IMPRESSION: No CT evidence of acute intracranial process. POS: OFF
[2019-12-05] MEDS ORDERED: Sodium Chloride 0.9% 1,000 ML IV SCH (18:30)
[2019-12-05] MEDS ORDERED: Aspirin 81 mg Enteric Coated Tablet PO SCH (18:30)
--- NOTE | 2019-12-05 18:54 | HP ---
REASON FOR ADMISSION: Possible TIA, headache. HISTORY OF PRESENTING ILLNESS: The patient gives history of feeling dizzy from yesterday. He has prior history of dizziness and went straight to his ENT physician's office this morning. He had a tilt-table test along with Will's maneuver done in his ENT physician's office this morning. Post this procedure, the patient felt slightly better, but started to have severe headaches and developed left shoulder pain, which later went on to his right shoulder. He felt very weak. The also mentions that he has been favoring his right side when he tries to ambulate. The patient's symptoms were similar to his prior stroke symptoms a year ago, and the patient and managed to come to the emergency room here. He has had a CT brain done here, which does not show any acute infarct or bleed. There is no specific weakness in any of the extremities at present. No complaints of fever, cough, or expectoration. No exposure to Coronavirus. Last year, when the patient had a CVA, he was found to have had severe vertigo and was referred to ENT specialist. He has had some shots placed in his right ear and also had Will's maneuver done then and he got better. PAST MEDICAL AND SURGICAL HISTORY: 1. History of prior CVA with no residual paralysis. The patient also appears to have had 7th nerve palsy, which is completely resolved. 2. Neck pain with prior surgery. 3. Appendectomy. 4. Chronic vertigo. 5. Ureteral stones with stent and lithotripsy. 6. GERD. 7. Obesity. 8. Anxiety. 9. Depression. 10. Dyslipidemia. 11. Obstructive sleep apnea, on CPAP machine. CURRENT MEDICATIONS: The patient is on; 1. Flomax 0.4 mg p.o. daily. 2. Aspirin 81 mg p.o. daily. 3. Omeprazole 40 mg p.o. daily. 4. Diazepam 5 mg twice daily p.r.n. 5. Sertraline 100 mg p.o. daily. 6. Hydrochlorothiazide 25 mg p.o. daily. 7. Amlodipine with benazepril 5/20 mg p.o. daily. ALLERGIES: ALLERGIC TO LEVAQUIN. PERSONAL HISTORY: Does not abuse alcohol or drugs. No history of smoking. FAMILY HISTORY: Mother in her 70s. She has had history of diabetes, coronary artery disease, was blind, and had end-stage renal disease as well. Father at the age of 59, he has had stroke. REVIEW OF SYSTEMS: CONSTITUTIONAL: Negative for weight loss or gain, ability to conduct usual activities. SKIN: Negative for rash, itching. EYES: Negative for double vision, pain. ENT/MOUTH: Negative for nose bleeding, neck stiffness, pain, tenderness. CARDIOVASCULAR: Negative for palpitations, dyspnea on exertion, orthopnea. RESPIRATORY: Negative for shortness of breath, wheezing, cough, hemoptysis, fever or night sweats. GASTROINTESTINAL: Negative for poor appetite, abdominal pain, heartburn, nausea, vomiting, constipation, or diarrhea. GENITOURINARY: Negative for urgency, frequency, dysuria, nocturia. MUSCULOSKELETAL: Negative for pain, swelling. NEUROLOGIC/PSYCHIATRIC: Negative for anxiety, depression. ALLERGY/IMMUNOLOGIC: Negative for skin rash, bleeding tendency. CODE STATUS: Full. Power of prosecuting attorney is his . PHYSICAL EXAMINATION: GENERAL: The patient is a 59-year-old male, who is currently not in any acute distress. VITAL SIGNS: Blood pressure 134/70, pulse 76 per minute, respiratory rate 20 per minute, temperature 97.8 degrees Fahrenheit, saturating 97% on room air. NECK: Supple. No elevated JVD. HEENT: Eyes; extraocular muscles intact. Pupils reacting to light. Oral cavity, mucous membranes are moist. No exudates or congestion. CARDIOVASCULAR: S1-S2 heard. Regular rhythm. RESPIRATORY: Air entry 1+ bilateral. No rales or rhonchi. ABDOMEN: Soft. Bowel sounds heard. No rigidity or guarding. EXTREMITIES: No peripheral edema or calf tenderness. VASCULAR: Peripheral pulses 2+ bilateral. No ischemic ulcerations or gangrene. CENTRAL NERVOUS SYSTEM: No gross focal deficits noted. Cranial nerves are grossly intact. Strength is 5/5 in all 4 extremities. Reflexes are 2+ bilateral. Babinski is downgoing. Gait was not tested. PSYCHIATRIC: No obvious hallucinations or delusions. LABORATORY AND DIAGNOSTIC DATA: White count of 10, H and H of 15 and 46, platelet count is 218 with 64% neutrophils. PT/INR, PTT within normal limits. BUN 15, creatinine 0.8, serum glucose 156. Liver enzymes within normal limits. Albumin is 4.2. CT of brain without contrast, official results are pending. EKG done shows normal sinus rhythm at 77 beats per minute. There are nonspecific ST-T wave changes noted. CLINICAL IMPRESSION AND PLAN: The patient will be under observation on stroke unit for possible cerebrovascular accident, dizziness, headache. We will follow TIA evidence based protocol. He has gotten a g of Tylenol in the ER. If this did not relieve his pain, we will give him a dose of morphine. We will continue his aspirin, Lipitor, Lotrel 5/20 mg daily, meclizine p.r.n. for dizziness. Gentle hydration with normal saline at 60 mL/hr and continue home doses of Zoloft and Flomax. It is unclear if the patient is on diazepam. If he is on, we will continue the same to avoid withdrawal symptoms. MRI without contrast will be obtained to specifically rule out posterior circulation CVA. The patient has multiple risk factors and is morbidly obese as well. He forgot to bring his CPAP machine and we will provide hospital CPAP at home settings. Job ID: [id number]
[2019-12-05 21:16] VITALS: BMI 43.4
[2019-12-05] MEDS: Meclizine HCl 25 MG TAB PO PRN (21:27)
[2019-12-05] MEDS: Famotidine 20 MG TAB PO SCH (21:27)
[2019-12-05] MEDS: Atorvastatin Calcium 40 MG TAB PO SCH (21:27)
[2019-12-05] MEDS: Tamsulosin HCl 0.4 MG CAP PO SCH (21:37)
[2019-12-05] MEDS: HYDROcodone/Acetaminophen 5/325 mg Tablet PO PRN (23:38)
[2019-12-06 05:11] LABS: #Basophils 0.1 thou/uL (0.0-0.2); #Eosinphils 0.4 thou/uL (0.0-0.7); #Monocytes 0.8 thou/uL (0.11-0.59); #Neutrophils 5.4 thou/uL (1.40-6.50); %Eosinophils 3.7 % (0.0-10.0); %Lymphocytes 30.8 % (21.0-51.0); %Monocytes 8.4 % (0.0-10.0); %Neutrophils 56.1 % (42.0-75.0); Hemoglobin 15.4 g/dL (14.0-18.0); Mean Corpuscular HGB CONC 34.4 g/dL (32.0-36.0); Mean Corpuscular Hemoglobin 30.6 pg (27.0-31.0); Mean Corpuscular Volume 88.9 fL (78.0-98.0); Mean Platelet Volume 8.2 fL (7.4-10.4); Platelet Count 198 thou/uL (130-400); RBC Distribution Width 12.5 % (11.5-14.5); Red Blood Cell (RBC) Count 5.02 mill/uL (4.70-6.10); White Blood Cell (WBC) Count 9.6 thou/uL (4.8-10.8)
[2019-12-06 05:21] LABS: Hemoglobin A1c 6.5 % (4.0-6.0)
[2019-12-06 05:49] LABS: Anion Gap 13 mmol/L (10-20); BUN (Urea Nitrogen) 16 mg/dL (8.4-25.7); Calc. Creatinine Clearance 194 mL/min (70-130); Calcium 8.9 mg/dL (7.8-10.44); Carbon Dioxide 27 mmol/L (22-29); Cardiac Risk 3.8 (Less than 4.5); Chloride 101 mmol/L (98-107); Cholesterol 152 mg/dl (< 200 Desired); Estimated GFR-MDRD Greater than 90; Glucose 117 mg/dL (70-105); HDL Cholesterol 40 mg/dL (>60 Neg Risk); Sodium 137 mmol/L (136-145)
[2019-12-06 05:50] LABS: Triglycerides 193 mg/dL (Less than 150)
[2019-12-06 06:26] LABS: LDL Cholesterol, Calculated 73 mg/dL
--- NOTE | 2019-12-06 08:41 | MRI ---
MRI BRAIN NONCONTRAST: DATE: 12/06/2019 HISTORY: 59-year-old male with TIA, dizziness, vertigo, headache FINDINGS: The ventricles are normal in size and configuration. There is no major intra-axial signal abnormality , restricted diffusion, midline shift or any other mass effect, recent intra-axial hemorrhage, or extra-axial fluid collection. IMPRESSION: Normal
[2019-12-06] MEDS: Amlodipine 5 mg/Benazepril 20 mg CAP PO SCH (09:46)
[2019-12-06] MEDS: Famotidine 20 MG TAB PO SCH ×2 (09:46→22:17)
[2019-12-06] MEDS: Aspirin 81 mg Enteric Coated Tablet PO SCH (09:47)
[2019-12-06] MEDS: Enoxaparin Sodium 40 MG/0.4 ML SYRINGE SC SCH (09:47)
[2019-12-06] MEDS: Meclizine HCl 25 MG TAB PO PRN ×2 (09:48→18:35)
[2019-12-06] MEDS: Diazepam 5 MG TAB PO SCH ×2 (11:55→22:17)
--- NOTE | 2019-12-06 12:32 | CON ---
NEUROLOGY CONSULTATION DATE OF CONSULTATION: 12/06/2019 REASON FOR CONSULTATION: Headache, dizziness, rule out TIA. HISTORY OF PRESENT ILLNESS: Mr. Fonseca is a 59-year-old male with history significant for dizziness, who presented to the emergency room with severe headache and shoulder pain. The history is taken from the patient and the . According to the , he had severe pain, which started on Thursday associated with weakness He had a similar episode a year ago good and the headache is also associated with dizziness, so she decided to bring him to the emergency room for further evaluation. Head CT was done, which did not reveal any acute intracranial pathology. The patient denies any focal weakness, but he does have nausea, vomiting, headache, and he has history of severe vertigo for which he follows the ENT specialist. The patient at this time denies any focal weakness, nausea, but does report headache, nausea, vomiting, but denies chest pain, paresthesias, loss of vision or blurred vision. REVIEW OF SYSTEMS: All 14 systems were reviewed and were negative except the pertinent positives and negatives mentioned in the HPI. PAST MEDICAL HISTORY: Prior CVA with no residual paralysis; neck pain, status post surgery; appendectomy; vertigo; GERD; obesity; anxiety; depression; dyslipidemia ; and obstructive sleep apnea. PAST SURGICAL HISTORY: Neck surgery. CURRENT MEDICATIONS: 1. Flomax 0.4 mg daily. 2. Aspirin 81 mg daily. 3. Omeprazole 40 mg daily. 4. Diazepam 5 mg daily p.r.n. 5. Sertraline 100 mg daily. 6. Hydrochlorothiazide 25 mg daily. 7. Amlodipine with benazepril 5/20 mg p.o. daily. ALLERGIES: LEVAQUIN. SOCIAL HISTORY: The patient denies smoking, alcohol, or illegal drug use. FAMILY HISTORY: Mother had history of diabetes, coronary artery disease, end- stage renal disease. Father at the age of 59 because of a stroke. PHYSICAL EXAMINATION: GENERAL: A 59-year-old male, in mild distress. VITAL SIGNS: Blood pressure 130/70, pulse 80-and respiratory rate 18. CVS: Regular rate and rhythm. CHEST: Clear. ABDOMEN: Soft. NECK: No carotid bruit. NEUROLOGICAL: Mental status; the patient is alert and oriented to person, place , and time. Cranial nerves II through XII are intact. Motor; muscle tone and bulk are normal. Strength 5/5 bilaterally. Sensory; intact. Reflexes; symmetric bilaterally. Babinski downgoing bilaterally. Cerebellar; finger-nose testing intact. Gait; deferred due to the patient's safety reasons. DATA REVIEWED: I reviewed the head CT, which did not reveal any acute intracranial pathology. The labs were essentially unremarkable. ASSESSMENT AND PLAN: Mr. Fonseca is admitted to the Stroke Unit to rule out possible transient ischemic attack versus complicated migraine. Continue aspirin and statin for secondary stroke prevention and monitor blood pressure. Telemetry. Strict control of the blood glucose. Continue home medications. PT/OT/Speech. He does have risk factors for posterior circulation transient ischemic attack versus cerebrovascular accident. Consider headache cocktail toradol, benadryl and compazine for headache control. Neuro checks every 4 hours. We will continue to follow. Thank you for the consult. Job ID: [id number] [id number]
--- NOTE | 2019-12-06 15:33 | PDOC.HOSPP ---
- Subjective Encounter Date: 12/06/19 Encounter Time: 10:00 Subjective: no overnight events. this morning, complains of persistent sensation of room spinning around him sometimes when laying down and on transition from laying down to sitting up. Endorses b/l partial hearing loss over the past few months. Denies headache, ear pain, ear drainage, ear fullness, tinnitus - Objective Vital Signs & Weight: Vital Signs (12 hours) Temp Pulse Pulse Pulse Resp BP BP 12/06/19 15:19 97.9 F 68 19 12/06/19 11:38 98.6 F 64 19 12/06/19 10:05 61 63 161/76 H 138/71 12/06/19 07:00 98.3 F 65 20 BP Pulse Ox 12/06/19 15:19 125/65 95 12/06/19 11:38 136/68 97 12/06/19 10:05 12/06/19 07:00 138/75 97 Weight Weight 311 lb 14.4 oz I&O: 12/05/19 12/06/19 12/07/19 06:59 06:59 06:59 Intake Total 960 Balance 960 Result Diagrams: 12/06/19 04:40 12/06/19 04:40 Hospitalist ROS - Review of Systems Constitutional: denies: fever, chills, sweats, weakness, malaise, other ENT: denies: ear pain, ear discharge Respiratory: denies: cough Cardiovascular: denies: chest pain, palpitations, orthopnea Gastrointestinal: denies: nausea, vomiting - Medication Medications: Active Medications Generic Name Dose Route Start Last Admin Trade Name Freq PRN Reason Stop Dose Admin Hydrocodone Bitart/Acetaminophen 1 tab 12/05/19 18:10 12/05/19 23:38 [place] 5/325 PO 1 tab Q4H PRN Administration Moderate Pain (4-6) Amlodipine/Benazepril HCl 1 cap 12/06/19 09:00 12/06/19 09:46 Lotrel 5/20 PO 1 cap QAM BENITO Administration Aspirin 81 mg 12/06/19 09:00 12/06/19 09:47 Ecotrin PO 81 mg DAILY BENITO Administration Atorvastatin Calcium 40 mg 12/05/19 21:00 12/05/19 21:27 Lipitor PO 40 mg HS BENITO Administration Diazepam 5 mg 12/06/19 15:00 12/06/19 11:55 Valium PO 5 mg TID BENITO Administration Enoxaparin Sodium 40 mg 12/06/19 09:00 12/06/19 09:47 Lovenox SC 40 mg 09 BENITO Administration Famotidine 20 mg 12/05/19 21:00 12/06/19 09:46 Pepcid PO 20 mg BID BENITO Administration Meclizine HCl 25 mg 12/05/19 18:10 12/06/19 09:48 Antivert PO 25 mg Q8H PRN Administration Dizziness Morphine Sulfate 2 mg 12/05/19 18:10 12/05/19 21:00 Morphine SLOW IVP 2 mg Q4H PRN Administration Severe Pain (7-10) Sertraline HCl 100 mg 12/06/19 09:00 12/06/19 09:47 Zoloft PO 100 mg QAM BENITO Administration Sodium Chloride 10 ml 12/05/19 18:10 12/05/19 21:29 Flush - Normal Saline IVF 10 ml PRN PRN Administration Saline Flush Tamsulosin HCl 0.4 mg 12/05/19 21:00 12/05/19 21:37 Flomax PO Not Given HS BENITO - Exam General - other findings: in mild distress, laying flat in bed because sitting up worsens spinning se Eye: PERRL Eye - other findings: saccadic eye movements on lateral gaze, b/l Neck: no JVD Heart: RRR, no murmur, no gallops, no rubs Respiratory: CTAB, no wheezes, no rales, no ronchi Gastrointestinal: soft, non-tender, non-distended, normal bowel sounds Extremities: no edema Psychiatric: normal affect, normal behavior, A&O x 3 Hosp A/P (1) Benign paroxysmal positional vertigo Code(s): H81.10 - BENIGN PAROXYSMAL VERTIGO, UNSPECIFIED EAR Status: Acute - Plan #BPPV -positional, short duration, with peripheral characteristics -started valium for anxiety, which may acutely aid with vertigo in acute phase -Will apply eppley maneuver -Pending MRI head ELOS 1 midnight
[2019-12-06] MEDS: Tamsulosin HCl 0.4 MG CAP PO SCH (22:17)
[2019-12-06] MEDS: Atorvastatin Calcium 40 MG TAB PO SCH (22:17)
[2019-12-07] MEDS: HYDROcodone/Acetaminophen 5/325 mg Tablet PO PRN (06:24)
[2019-12-07] MEDS: Enoxaparin Sodium 40 MG/0.4 ML SYRINGE SC SCH (08:36)
[2019-12-07] MEDS: Amlodipine 5 mg/Benazepril 20 mg CAP PO SCH (08:37)
[2019-12-07] MEDS: Diazepam 5 MG TAB PO SCH ×3 (08:37→21:02)
[2019-12-07] MEDS: Famotidine 20 MG TAB PO SCH ×2 (08:37→21:02)
[2019-12-07] MEDS: Aspirin 81 mg Enteric Coated Tablet PO SCH (08:37)
[2019-12-07] MEDS: Meclizine HCl 25 MG TAB PO PRN (11:24)
[2019-12-07] MEDS: Acetaminophen 500 MG TAB PO PRN ×2 (13:08→21:01)
--- NOTE | 2019-12-07 14:21 | PDOC.HOSPP ---
- Subjective Encounter Date: 12/07/19 Encounter Time: 09:00 Subjective: overnight, continues to have headaches and nausea associated with vertigo. This morning, performed Delio, right gaze nystagmus present. vertigo somewhat improved but hasn't resolved. - Objective Vital Signs & Weight: Vital Signs (12 hours) Temp Pulse Pulse Pulse Resp BP BP 12/07/19 12:00 98.5 F 64 18 12/07/19 09:53 67 66 152/71 H 148/70 H 12/07/19 07:45 97.6 F 70 16 12/07/19 04:00 97.7 F 62 20 BP Pulse Ox 12/07/19 12:00 125/71 96 12/07/19 09:53 12/07/19 07:45 143/78 H 97 12/07/19 04:00 144/74 H 99 Weight Weight 311 lb 14.4 oz I&O: 12/06/19 12/07/19 12/08/19 06:59 06:59 06:59 Intake Total 960 10 Output Total 1450 Balance -490 10 Result Diagrams: 12/06/19 04:40 12/06/19 04:40 Hospitalist ROS - Review of Systems Constitutional: denies: chills, sweats Eyes: denies: vision change ENT: denies: ear pain, ear discharge Respiratory: denies: cough, dry, shortness of breath Cardiovascular: denies: chest pain, palpitations, orthopnea, paroxysmal noc. dyspnea Gastrointestinal: reports: nausea. denies: vomiting, abdominal pain, diarrhea - Medication Medications: Active Medications Generic Name Dose Route Start Last Admin Trade Name Freq PRN Reason Stop Dose Admin Acetaminophen 1,000 mg 12/07/19 12:32 12/07/19 13:08 Tylenol PO 1,000 mg Q6H PRN Administration Headache/Fever/Mild Pain (1-3) Amlodipine/Benazepril HCl 1 cap 12/06/19 09:00 12/07/19 08:37 Lotrel 5 PO 1 cap QAM BENITO Administration Aspirin 81 mg 12/06/19 09:00 12/07/19 08:37 Ecotrin PO 81 mg DAILY BENITO Administration Atorvastatin Calcium 40 mg 12/05/19 21:00 12/06/19 22:17 Lipitor PO 40 mg HS BENITO Administration Diazepam 5 mg 12/06/19 15:00 12/07/19 08:37 Valium PO 5 mg TID BENITO Administration Enoxaparin Sodium 40 mg 12/06/19 09:00 12/07/19 08:36 Lovenox SC 40 mg 0900 BENITO Administration Famotidine 20 mg 12/05/19 21:00 12/07/19 08:37 Pepcid PO 20 mg BID BENITO Administration Sertraline HCl 100 mg 12/06/19 09:00 12/07/19 08:36 Zoloft PO 100 mg QAM BENITO Administration Sodium Chloride 10 ml 12/05/19 18:10 12/07/19 08:37 Flush - Normal Saline IVF 10 ml PRN PRN Administration Saline Flush Tamsulosin HCl 0.4 mg 12/05/19 21:00 12/06/19 22:17 Flomax PO 0.4 mg HS BENITO Administration - Exam General Appearance: NAD, awake alert Eye: PERRL Eye - other findings: right gaze nsytagmus on delio manuever Heart: RRR, no murmur, no gallops Respiratory: CTAB, no wheezes, no rales, no ronchi Gastrointestinal: soft, non-tender, non-distended, normal bowel sounds Extremities: no edema Psychiatric: normal affect, normal behavior, A&O x 3 Hosp A/P (1) Benign paroxysmal positional vertigo Code(s): H81.10 - BENIGN PAROXYSMAL VERTIGO, UNSPECIFIED EAR Status: Acute - Plan #BPPV -nystagmus on right delio maneuver; vertigo somewhat improved after maneuver but nausea, headache persist -MRI unremarkable -continue valium for acute vertigo, anxiety -tylenol 1000mg PO q6h PRN headache -ENT consulted ROBERTOOS 1 midnight
--- NOTE | 2019-12-07 14:50 | PDOC.HOSPP ---
- Subjective Encounter Date: 12/07/19 Subjective: NEUROLOGY PROGRESS NOTE Patient continues to have headache with nausea and dizziness. - Objective Vital Signs & Weight: Vital Signs (12 hours) Temp Pulse Pulse Pulse Resp BP BP 12/07/19 12:00 98.5 F 64 18 12/07/19 09:53 67 66 152/71 H 148/70 H 12/07/19 07:45 97.6 F 70 16 12/07/19 04:00 97.7 F 62 20 BP Pulse Ox 12/07/19 12:00 125/71 96 12/07/19 09:53 12/07/19 07:45 143/78 H 97 12/07/19 04:00 144/74 H 99 Weight Weight 311 lb 14.4 oz I&O: 12/06/19 12/07/19 12/08/19 06:59 06:59 06:59 Intake Total 960 10 Output Total 1450 Balance -490 10 Result Diagrams: 12/06/19 04:40 12/06/19 04:40 Radiology Reviewed by me: Yes EKG Reviewed by me: Yes Hospitalist ROS - Review of Systems Constitutional: denies: fever, chills, sweats, weakness, malaise, other Eyes: denies: pain, vision change, conjunctivae inflammation, eyelid inflammation, redness, other ENT: denies: ear pain, ear discharge, nose pain, nose discharge, nose congestion , mouth pain, mouth swelling, throat pain, throat swelling, other Respiratory: denies: cough, dry, shortness of breath, hemoptysis, SOB with excertion, pleuritic pain, sputum, wheezing, other Cardiovascular: reports: light headedness, other (headache). denies: chest pain , palpitations, orthopnea, paroxysmal noc. dyspnea, edema Genitourinary: denies: dysuria, frequency, incontinence, hematuria, retention, other Musculoskeletal: denies: neck pain, shoulder pain, arm pain, back pain, hand pain, leg pain, foot pain, other Skin: denies: rash, lesions, riki, bruising, other Neurological: reports: weakness, incoordination - Medication Medications: Active Medications Generic Name Dose Route Start Last Admin Trade Name Freq PRN Reason Stop Dose Admin Acetaminophen 1,000 mg 12/07/19 12:32 12/07/19 13:08 Tylenol PO 1,000 mg Q6H PRN Administration Headache/Fever/Mild Pain (1-3) Amlodipine/Benazepril HCl 1 cap 12/06/19 09:00 12/07/19 08:37 Lotrel 5/20 PO 1 cap QAM BENITO Administration Aspirin 81 mg 12/06/19 09:00 12/07/19 08:37 Ecotrin PO 81 mg DAILY BENITO Administration Atorvastatin Calcium 40 mg 12/05/19 21:00 12/06/19 22:17 Lipitor PO 40 mg HS BENITO Administration Diazepam 5 mg 12/06/19 15:00 12/07/19 08:37 Valium PO 5 mg TID BENITO Administration Enoxaparin Sodium 40 mg 12/06/19 09:00 12/07/19 08:36 Lovenox SC 40 mg 0900 BENITO Administration Famotidine 20 mg 12/05/19 21:00 12/07/19 08:37 Pepcid PO 20 mg BID BENITO Administration Sertraline HCl 100 mg 12/06/19 09:00 12/07/19 08:36 Zoloft PO 100 mg QAM BENITO Administration Sodium Chloride 10 ml 12/05/19 18:10 12/07/19 08:37 Flush - Normal Saline IVF 10 ml PRN PRN Administration Saline Flush Tamsulosin HCl 0.4 mg 12/05/19 21:00 12/06/19 22:17 Flomax PO 0.4 mg HS BENITO Administration - Exam Eye: PERRL ENT: normocephalic atraumatic Neck: supple Heart: RRR Respiratory: CTAB Gastrointestinal: soft Extremities: no cyanosis Skin: normal turgor Neurological: cranial nerve grossly intact, normal sensation to touch, no focal deficits, no new deficit Musculoskeletal: normal tone, no muscle wasting, generalized weakness Psychiatric: normal affect, normal behavior, A&O x 3, oriented to person, oriented to place, oriented to time Hosp A/P (1) Benign paroxysmal positional vertigo Code(s): H81.10 - BENIGN PAROXYSMAL VERTIGO, UNSPECIFIED EAR Status: Acute (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 Status: Acute (3) Received intravenous tissue plasminogen activator (tPA) in emergency department Code(s): Z92.82 - S/P ADMN TPA IN DIFF FAC W/N LAST 24 HR BEF ADM TO CRNT FAC Status: Acute (4) Anxiety and depression Code(s): F41.9 - ANXIETY DISORDER, UNSPECIFIED; F32.9 - MAJOR DEPRESSIVE DISORDER, SINGLE EPISODE, UNSPECIFIED Status: Chronic (5) Dyslipidemia Code(s): E78.5 - HYPERLIPIDEMIA, UNSPECIFIED Status: Chronic (6) Hypertension Code(s): I10 - ESSENTIAL (PRIMARY) HYPERTENSION Status: Chronic (7) [place] on CPAP Code(s): G47.33 - OBSTRUCTIVE SLEEP APNEA (ADULT) (PEDIATRIC); Z99.89 - DEPENDENCE ON OTHER ENABLING MACHINES AND DEVICES Status: Chronic - Plan plan discussed w/ family, PT/OT, speech therapy, DVT proph w/SCDs 59 year old consulted for headache and dizziness to rule out posterior circulation stroke. MRI brain reviewed which was negative for acute intracranial process. Check orthostatics. Neurochecks every 4 hours. Continue home medications. ENT on board for BPPV. Continue medical management per primary team. Plan and results of imaging discussed with the patient and the nursing staff. No further recommendations from neurology perspective.
[2019-12-07] MEDS ORDERED: Melatonin 3 MG TAB PO PRN (16:29)
[2019-12-07] MEDS ORDERED: Dexamethasone 4 MG TAB PO SCH (16:30)
[2019-12-07] MEDS: Atorvastatin Calcium 40 MG TAB PO SCH (21:02)
[2019-12-07] MEDS: Tamsulosin HCl 0.4 MG CAP PO SCH (21:02)
[2019-12-08] MEDS: Aspirin 81 mg Enteric Coated Tablet PO SCH (08:46)
[2019-12-08] MEDS: Famotidine 20 MG TAB PO SCH (08:46)
[2019-12-08] MEDS: Diazepam 5 MG TAB PO SCH (08:46)
[2019-12-08] MEDS: Amlodipine 5 mg/Benazepril 20 mg CAP PO SCH (08:46)
[2019-12-08] MEDS: Acetaminophen 500 MG TAB PO PRN (08:46)
[2019-12-08] MEDS: Enoxaparin Sodium 40 MG/0.4 ML SYRINGE SC SCH (08:46)
[2019-12-08 09:02] VITALS: BP 155/89; TEMP 98
--- NOTE | 2019-12-09 13:29 | DIS ---
DATE OF ADMISSION: 12/05/2019 DATE OF DISCHARGE: 12/08/2019 HOSPITAL COURSE: Mr. Fonseca is a 59-year-old male, who presented with spinning and tilting sensation. He was diagnosed with BPPV. He received multiple Will maneuvers and improved gradually. Per ENT recommendations, he was also administered a single dose of steroids after the last Will maneuver. On the day of discharge, symptoms have significantly improved and he was sent directly to the [facility] on the same day in order to further workup and evaluate his BPPV, which has been persistent over the past few months. PHYSICAL EXAMINATION: VITAL SIGNS: Blood pressure 155/89, 98.0 Fahrenheit, pulse 82, respiratory rate 20, and oxygen saturation 95% on room air. GENERAL: No apparent distress. Awake and alert. EYE EXAM: PERRL. Right gaze nystagmus on right-sided Will maneuver. CARDIAC: Regular rate and rhythm. No murmur. No gallops. RESPIRATORY: Clear to auscultation bilaterally. No wheezing, rales, or rhonchi. GI: Soft, nontender, and nondistended. Normal bowel sounds. EXTREMITIES: No edema. PSYCHIATRIC: Normal affect. Normal behavior. Alert and oriented x3. MEDICATION LIST: New medications: No new medications. Continued medications: 1. Tylenol p.r.n. 2. Sertraline. 3. Aspirin. 4. Valium. 5. Zofran p.r.n. 6. Amlodipine. 7. Omeprazole. 8. Tamsulosin. Discontinued medications: Hydrochlorothiazide due to vertigo. Job ID: [id number]
== END 2019-12-08 11:11 | disposition home or self-care (01) | DRG 149 ==
LOC: ERS 15:55 → OBSVTOIN 17:42 → 2SE 17:42
PROVIDERS: ADMIT Internal Medicine; ATTEND Internal Medicine
DX: H81.10 Benign paroxysmal vertigo, unspecified ear (principal); G51.0 Bell's palsy; F41.9 Anxiety disorder, unspecified; F32.9 Major depressive disorder, single episode, unspecified; E78.5 Hyperlipidemia, unspecified; I10 Essential (primary) hypertension; K21.9 Gastro-esophageal reflux disease without esophagitis; G47.33 Obstructive sleep apnea (adult) (pediatric); E66.9 Obesity, unspecified; Z90.49 Acquired absence of other specified parts of digestive tract; Z87.442 Personal history of urinary calculi
CPT/HCPCS: 36415; 70450; 70551; 80048; 80053; 80061; 83036; 85025; 85610; 85730; 93005; 94660; 94760; 96372; 96374; G0378; J1650; J2270; J2405; J8540

== ENCOUNTER 2021-11-26 09:20 | Outpatient (CLI) | payer MEDICARE | END 2021-11-26 09:21 | disposition home or self-care (01) | LOC: MRI 09:20 | PROVIDERS: ATTEND Surgery | DX: M50.30 Other cervical disc degeneration, unspecified cervical region (principal); R26.89 Other abnormalities of gait and mobility; M47.812 Spondylosis without myelopathy or radiculopathy, cervical region; M47.26 Other spondylosis with radiculopathy, lumbar region; Z98.890 Other specified postprocedural states; M48.061 Spinal stenosis, lumbar region without neurogenic claudication; M48.07 Spinal stenosis, lumbosacral region | CPT/HCPCS: 72050; 72120; 72148 ==

== ENCOUNTER 2021-12-03 12:39 | Outpatient (CLI) | payer MEDICARE ==
[~2021-12-03 12:39] MED LIST: Magnevist 469MG/ML 20 ML VIAL ONE
== END 2021-12-03 12:40 | disposition home or self-care (01) ==
LOC: TBSIIMAG 12:39
PROVIDERS: ATTEND Surgery
DX: M50.30 Other cervical disc degeneration, unspecified cervical region (principal); M54.16 Radiculopathy, lumbar region; R26.81 Unsteadiness on feet; M47.812 Spondylosis without myelopathy or radiculopathy, cervical region; M47.813 Spondylosis without myelopathy or radiculopathy, cervicothoracic region; Z98.890 Other specified postprocedural states
CPT/HCPCS: 70553; 72141; 82565

== ENCOUNTER 2022-07-09 17:22 | Observation (INO) | payer MEDICARE ==
[2022-07-09 18:01] LABS: #Eosinphils 0.2 thou/uL (0.0-0.7); #Lymphocytes 2.6 thou/uL (1.20-3.40); #Monocytes 0.9 thou/uL (0.11-0.59); #Neutrophils 6.3 thou/uL (1.40-6.50); %Basophils 0.3 % (0.0-1.0); %Eosinophils 1.8 % (0.0-10.0); %Lymphocytes 26.1 % (21.0-51.0); %Neutrophils 62.9 % (42.0-75.0); Hemoglobin 16.1 g/dL (14.0-18.0); Mean Corpuscular HGB CONC 33.9 g/dL (32.0-36.0); Mean Corpuscular Hemoglobin 30.8 pg (27.0-31.0); Mean Corpuscular Volume 90.8 fl (78.0-98.0); Mean Platelet Volume 7.7 fL (7.4-10.4); Platelet Count 215 10x3/uL (130-400); RBC Distribution Width 12.8 % (11.5-14.5); Red Blood Cell (RBC) Count 5.23 mill/uL (4.70-6.10); White Blood Cell (WBC) Count 10.1 10x3/uL (4.8-10.8)
[2022-07-09 18:15] LABS: ALT (SGPT) 23 U/L (8-55); AST (SGOT) 20 U/L (5-34); Albumin 4.2 g/dL (3.4-4.8); Alkaline Phosphatase 86 U/L (40-110); Anion Gap 13 mmol/L (10-20); BUN (Urea Nitrogen) 18 mg/dL (8.4-25.7); Bilirubin, Total 0.7 mg/dL (0.2-1.2); Calc. Creatinine Clearance 0 mL/min (70-130); Calcium 9.4 mg/dL (7.8-10.44); Carbon Dioxide 24 mmol/L (23-31); Chloride 102 mmol/L (98-107); Estimated GFR 97; Globulin 3.7 g/dL (2.4-3.5); Glucose 90 mg/dL (80-115); Lipase 24 U/L (8-78); Protein, Total 7.9 g/dL (5.8-8.1); Sodium 135 mmol/L (136-145)
[2022-07-09] MEDS ORDERED: Morphine 4 MG/ML VIAL ONE (18:40)
[2022-07-09 21:04] LABS: SARS-CoV-2 NAA Rapid Test Not Detected (NotDetected)
[2022-07-09] MEDS ORDERED: Acetaminophen 325 MG TAB PO PRN (21:43)
[2022-07-09] MEDS ORDERED: Ondansetron PF 4 MG/2 ML Vial IVP PRN (21:43)
[2022-07-09 22:25] LABS: Troponin I Less than 0.010 ng/mL (< 0.028)
[2022-07-09] MEDS ORDERED: Morphine 2 MG/ML VIAL ONE (22:29)
[2022-07-10 00:16] LABS: Troponin I Less than 0.010 ng/mL (< 0.028)
[2022-07-10] MEDS ORDERED: Nitroglycerin 2% Ointment 1 INCH/1 GM Packet ONE (00:30)
[2022-07-10] MEDS: Nitroglycerin 2% Ointment 1 INCH/1 GM Packet TOP SCH ×3 (00:32→15:03)
[2022-07-10 01:36] VITALS: BMI 37.5
[2022-07-10] MEDS ORDERED: Morphine 4 MG/ML VIAL SLOW IVP PRN (01:55)
[2022-07-10 03:21] VITALS: TEMP 97.4
[2022-07-10 05:50] LABS: #Basophils 0.1 thou/uL (0.0-0.2); #Eosinphils 0.3 thou/uL (0.0-0.7); #Lymphocytes 2.8 thou/uL (1.20-3.40); #Monocytes 0.8 thou/uL (0.11-0.59); #Neutrophils 4.9 thou/uL (1.40-6.50); %Basophils 0.9 % (0.0-1.0); %Eosinophils 3.2 % (0.0-10.0); %Lymphocytes 31.8 % (21.0-51.0); %Monocytes 8.8 % (0.0-10.0); %Neutrophils 55.3 % (42.0-75.0); Hemoglobin 15.7 g/dL (14.0-18.0); Mean Corpuscular HGB CONC 33.4 g/dL (32.0-36.0); Mean Corpuscular Hemoglobin 30.1 pg (27.0-31.0); Mean Corpuscular Volume 90.1 fl (78.0-98.0); Mean Platelet Volume 7.7 fL (7.4-10.4); Platelet Count 194 10x3/uL (130-400); RBC Distribution Width 12.7 % (11.5-14.5); Red Blood Cell (RBC) Count 5.21 mill/uL (4.70-6.10); White Blood Cell (WBC) Count 8.9 10x3/uL (4.8-10.8)
[2022-07-10 06:03] LABS: Hemoglobin A1c 5.4 % (4.0-6.0)
[2022-07-10 06:23] LABS: Anion Gap 13 mmol/L (10-20); BUN (Urea Nitrogen) 19 mg/dL (8.4-25.7); Calc. Creatinine Clearance 157 mL/min (70-130); Calcium 9.3 mg/dL (7.8-10.44); Carbon Dioxide 26 mmol/L (23-31); Cardiac Risk 3.4 (Less than 4.5); Chloride 101 mmol/L (98-107); Cholesterol 156 mg/dl (< 200 Desired); Estimated GFR 99; Glucose 98 mg/dL (80-115); HDL Cholesterol 46 mg/dL (>60 Neg Risk); LDL Cholesterol, Calculated 93 mg/dL; Potassium 3.6 mmol/L (3.5-5.1); Sodium 136 mmol/L (136-145); Triglycerides 86 mg/dL (Less than 150)
[2022-07-10] MEDS ORDERED: Senokot S 8.6-50 MG TAB PO PRN (07:35)
[2022-07-10] MEDS ORDERED: Diazepam 5 MG TAB PO PRN (08:01)
[2022-07-10] MEDS ORDERED: Amlodipine 5 mg/Benazepril 20 mg CAP PO SCH (09:00)
[2022-07-10] MEDS ORDERED: Sertraline 100 MG TAB PO SCH (09:00)
[2022-07-10] MEDS ORDERED: Hydrochlorothiazide 25 MG TAB PO SCH (09:00)
[2022-07-10 11:57] VITALS: BP 122/74
[2022-07-10] MEDS ORDERED: Aspirin 81 mg Enteric Coated Tablet PO SCH (21:00)
== END 2022-07-10 15:16 | disposition home or self-care (01) ==
LOC: ERS 17:22 → ERHOLD 21:18 → 2SW 07-10 01:19
PROVIDERS: ADMIT Internal Medicine; ATTEND Internal Medicine
DX: R07.89 Other chest pain (principal); I10 Essential (primary) hypertension; E78.5 Hyperlipidemia, unspecified; I69.311 Memory deficit following cerebral infarction; E11.9 Type 2 diabetes mellitus without complications; G47.33 Obstructive sleep apnea (adult) (pediatric); K21.9 Gastro-esophageal reflux disease without esophagitis; M19.90 Unspecified osteoarthritis, unspecified site; G89.29 Other chronic pain; M54.9 Dorsalgia, unspecified; Z79.82 Long term (current) use of aspirin; Z79.899 Other long term (current) drug therapy; Z88.1 Allergy status to other antibiotic agents; Z88.8 Allergy status to other drugs, medicaments and biological substances; Z20.822 Contact with and (suspected) exposure to COVID-19
CPT/HCPCS: 71045; 78452; 80048; 80053; 80061; 83036; 83690; 83735; 84484 ×2; 85025 ×2; 93005 ×2; 93017; 96372; 96374; 96376; 99285; A9500; G0378 ×3; J2272; U0002; 36415; 93010; J0153; J1650; J2270